=== PATIENT | female | born 1990 | race Caucasian/White ===

== ENCOUNTER 2017-09-18 06:54 | Inpatient (IN) | payer BC ==
[2017-09-18] MEDS ORDERED: Misoprostol 25 MCG (1/4 of 100 MCG) Tab ONE ×2 (07:27→19:43)
[2017-09-18] MEDS: Misoprostol 25 MCG (1/4 of 100 MCG) Tab VAG SCH ×3 (07:30→16:08)
[2017-09-18] MEDS ORDERED: Nalbuphine 20 MG/1 ML Amp IVPUSH PRN (07:33)
[2017-09-18] MEDS ORDERED: Sodium Chloride 0.9% 10 ML Syringe FLUSH PRN (07:33)
[2017-09-18] MEDS ORDERED: Ondansetron 4 MG/2 ML SDV IVPUSH PRN (07:33)
[2017-09-18] MEDS ORDERED: Acetaminophen 325 MG Tab PO PRN (07:33)
[2017-09-18] MEDS ORDERED: diphenhydrAMINE 50 MG/ML SDV IVPUSH PRN (07:44)
[2017-09-18] MEDS ORDERED: fentaNYL 100 MCG/2 ML SDV EPIDUR PRN (07:44)
[2017-09-18] MEDS ORDERED: ePHEDrine 50 MG/ML SDV IVPUSH PRN (07:44)
[2017-09-18] MEDS ORDERED: Bupivacaine/fentaNYL/NS 100 ML Bag EPIDUR SCH (07:45)
--- NOTE | 2017-09-18 07:49 | PCM.LDHP ---
L&D History of Present Illness - General Date of Service: 09/18/17 Admit Problem/Dx: Patient Status Order with Admit Dx/Problem 09/18/17 07:34 Patient Status [ADT] Routine Admission Diagnosis/Problem Admission Diagnosis/Problem Source of Information: Patient History Limitations: Reports: No Limitations - History of Present Illness Introduction:: 76-year-old 1 para 0000 BOWEN of 09/24/2017 at estimated gestational age of 39 weeks 1 day. Group B strep positive with history of penicillin allergy and will begin vancomycin. Lives an [place]. Has had transient hypertension during the . Plan induction of labor. Rubella nonreactive needs measles mumps rubella vaccine after delivery. Improves with: Reports: None Worsens with: Reports: None Associated Symptoms: Reports: N - Related Data Allergies/Adverse Reactions: Allergies Allergy/AdvReac Type Severity Reaction Status Date / Time Penicillins Allergy Anaphylactic Verified 04/03/14 14:54 CDT Shock Past Medical History : 1 Para: 0 (0000) Psychiatric History: Reports: Depression Endocrine/Metabolic History: Reports: Hypothyroidism (Taking levothyroxine 50 g daily), Other (See Below) (History of hypokalemia) H&P Review of Systems - Review of Systems: Review Of Systems: See Below General: Reports: No Symptoms HEENT: Reports: No Symptoms Pulmonary: Reports: No Symptoms Cardiovascular: Reports: No Symptoms Gastrointestinal: Reports: No Symptoms Genitourinary: Reports: No Symptoms Musculoskeletal: Reports: No Symptoms Skin: Reports: No Symptoms Psychiatric: Reports: No Symptoms Neurological: Reports: No Symptoms Hematologic/Lymphatic: Reports: No Symptoms Immunologic: Reports: No Symptoms L&D Exam - Exam Exam: See Below - OB Specific Fundal Height In cm: 39 Movement: Active Heart Tones: Present Heart Tones per Min: 145 Heart Rate (FHR) Variability: Moderate (6-25 bmp) Presentation: Vertex - Richter Score Richter Score Cervix Position: Posterior Richter Score Consistency: Soft Richter Score Effacement: 31-50% Richter Score Dilation: 1-2 cm Richter Score 's Station: -3 Richter Score Total: 4 - Exam General: Alert, Oriented HEENT: Conjunctiva Clear, Mucosa Moist & [place], PERRLA Neck: Supple, Trachea Midline Lungs: Clear to Auscultation, Normal Respiratory Effort Cardiovascular: Regular Rate, Regular Rhythm GI/Abdominal Exam: Normal Bowel Sounds, Soft, Non-Tender, No Organomegaly, No Distention, No Abnormal Bruit, No Mass, Pelvis Stable Genitourinary: Normal external exam, Normal bimanual exam, Normal speculum exam Extremities: Normal Inspection, Normal Range of Motion, Non-Tender, No Pedal Edema, Normal Capillary Refill Skin: Warm, Dry, Intact Neurological: Reflexes Equal Bilateral Psychiatric: Alert, Normal Affect, Normal Mood - Problem List (1) 39 weeks gestation of SNOMED Code(s): 21619245 ICD Code: Z3A.39 - 39 WEEKS GESTATION OF Status: Acute Current Visit: Yes (2) GBS (group B Streptococcus carrier), +RV culture, currently SNOMED Code(s): 2234465930647, 5014996132185 ICD Code: O99.820 - STREPTOCOCCUS B CARRIER STATE COMPLICATING Status: Acute Current Visit: Yes (3) Transient hypertension of SNOMED Code(s): 237230778 ICD Code: O13.9 - GESTATIONAL HTN W/O SIGNIFICANT PROTEINURIA, UNSP TRIMESTER Status: Acute Current Visit: Yes (4) Hypothyroid in , antepartum SNOMED Code(s): 177983227289 ICD Code: O99.280 - ENDO, NUTRITIONAL AND METAB DISEASES COMP PREG, UNSP TRI ; E03.9 - HYPOTHYROIDISM, UNSPECIFIED Status: Acute Current Visit: Yes Problem List Initiated/Reviewed/Updated: No Orders Last 24hrs: Active Orders 24 hr Category Date Time Status Patient Status [ADT] Routine ADT 09/18/17 07:34 Ordered Activity as Tolerated [RC] PFP Care 09/18/17 07:34 Ordered Communication Order [RC] ASDIRECTED Care 09/18/17 07:34 Ordered Heart Tones [RC] ASDIRECTED Care 09/18/17 07:35 Ordered Notify Provider [RC] PFP Care 09/18/17 07:34 Ordered Notify Provider [RC] PRN Care 09/18/17 07:34 Ordered Peripheral IV Care [RC] . DIRECTED Care 09/18/17 07:35 Ordered Vital Signs [RC] PER UNIT ROUTINE Care 09/18/17 07:34 Ordered Regular Diet [DIET] Diet 09/18/17 Breakfast Ordered CBC WITH AUTO DIFF [HEME] Stat Lab 09/18/17 07:33 Ordered TYPE AND SCREEN [BBK] Stat Lab 09/18/17 07:33 Ordered Acetaminophen [Tylenol] Med 09/18/17 07:33 Ordered 650 mg PO Q4H PRN Lactated Ringers [Ringers, Lactated] 1,000 ml Med 09/18/17 07:45 Ordered IV ASDIRECTED Misoprostol [Cytotec] Med 09/18/17 11:30 Ordered 25 mcg VAG Q4H Nalbuphine [Nubain] Med 09/18/17 07:33 Ordered 10 mg IVPUSH Q2H PRN Ondansetron [Zofran] Med 09/18/17 07:33 Ordered 4 mg IVPUSH Q4H PRN Oxytocin/Lactated Ringers [Pitocin in LR 10 Units/1,000 Med 09/18/17 19:30 Ordered ML] 10 unit in 1,000 ml IV TITRATE Sodium Chloride 0.9% [Saline Flush] Med 09/18/17 07:33 Ordered 10 ml FLUSH ASDIRECTED PRN Vancomycin [Vancocin] 1 gm Med 09/18/17 07:45 Ordered Sodium Chloride 0.9% [Normal Saline] 250 ml IV Q12H Electronic Heart Tones Ext w TOCO [WOMSER] Oth 09/18/17 07:34 Ordered Routine Electronic Heart Tones Internal [WOMSER] Per Unit Oth 09/18/17 07:34 Ordered Routine Peripheral IV Insertion Adult [OM.PC] Routine Oth 09/18/17 07:34 Ordered Resuscitation Status Routine Resus Stat 09/18/17 07:33 Ordered Assessment/Plan Comment:: Plan induction of labor and delivery
--- NOTE | 2017-09-18 19:55 | PCM.SN ---
- Free Text/Narrative Note: after slow progression and placement of the third Cytotec at approximately 1600 hrs., decision made to repeat cytotech at 2000 hrs. and again at 2400 hrs. and then began Pitocin induction at 0400 hrs. on 09/19/17. Cervix at 2000 hrs. still closed but 70% effaced cephalic presentation now at 0 station cervix still soft and posterior. Cytotec placed. Patient states contractions seem to be getting stronger. Category 1 heart rate.
[2017-09-18] MEDS: Lactated Ringers 1,000 ML IV SCH (20:15)
[2017-09-18] MEDS ORDERED: Terbutaline 1 MG/ML SDV SUBCUT ONE (22:32)
[2017-09-18] MEDS ORDERED: Terbutaline 1 MG/ML SDV ONE (22:33)
[2017-09-19] MEDS: Misoprostol 25 MCG (1/4 of 100 MCG) Tab VAG SCH ×2 (00:48)
[2017-09-19] MEDS: Lactated Ringers 1,000 ML IV SCH ×4 (01:24→16:24)
[2017-09-19] MEDS: Oxytocin/Lactated Ringers 10 UNIT/1,000 ML BAG IV SCH ×2 (01:24→14:27)
--- NOTE | 2017-09-19 09:54 | PCM.SN ---
- Free Text/Narrative Note: Amniotomy performed at approximately 9:50 AM cervix is 2 cm dilated 80% effaced soft posterior vertex 0 station clear fluid category 1 heart rate.
[2017-09-19] MEDS ORDERED: Misoprostol 200 MCG Tab ONE (12:00)
[2017-09-19] MEDS ORDERED: fentaNYL 100 MCG/2 ML SDV EPIDUR PRN (14:30)
[2017-09-19] MEDS ORDERED: diphenhydrAMINE 50 MG/ML SDV IVPUSH PRN (14:30)
[2017-09-19] MEDS ORDERED: ePHEDrine 50 MG/ML SDV IVPUSH PRN (14:30)
[2017-09-19] MEDS ORDERED: Bupivacaine/fentaNYL/NS 100 ML Bag EPIDUR SCH (14:30)
--- NOTE | 2017-09-19 15:03 | PCM.PREANE ---
Preanesthetic Assessment - Anesthesia/Transfusion/Family Hx Anesthesia History: Prior Anesthesia Without Reaction Family History of Anesthesia Reaction: No Transfusion History: No Prior Transfusion(s) - Review of Systems General: No Symptoms Pulmonary: No Symptoms Cardiovascular: No Symptoms Gastrointestinal: No Symptoms Neurological: Numbness (left hand) Other: Reports: Thyroid Problems - Physical Assessment Pulse: 83 O2 Sat by Pulse Oximetry: 97 Respiratory Rate: 16 Blood Pressure: 132/83 Temperature: 36.7 C Vital Signs: Last Vital Signs Temp 36.7 C 09/18/17 21:49 Pulse 65 09/18/17 07:34 Resp 16 09/18/17 07:34 BP 119/83 09/18/17 07:34 Pulse Ox Height: 1.7 m Weight: 85.275 kg ASA Class: 2 Mental Status: Alert & Oriented x3 Airway Class: Mallampati = 1 Dentition: Reports: Normal Dentition Thyro-Mental Finger Breadths: 3 Mouth Opening Finger Breadths: 3 ROM/Head Extension: Full Lungs: Clear to Auscultation, Normal Respiratory Effort Cardiovascular: Regular Rate, Regular Rhythm - Lab Values: Laboratory Last Values WBC 8.84 K/mm3 (3.98-10.04) 09/18/17 08:00 RBC 4.74 M/mm3 (3.98-5.22) 09/18/17 08:00 Hgb 12.9 gm/L (11.2-15.7) 09/18/17 08:00 Hct 39.4 % (34.1-44.9) 09/18/17 08:00 MCV 83.1 fl (79.4-94.8) 09/18/17 08:00 MCH 27.2 pg (25.6-32.2) 09/18/17 08:00 MCHC 32.7 g/dl (32.2-35.5) 09/18/17 08:00 RDW Std Deviation 41.8 fL (36.4-46.3) 09/18/17 08:00 Plt Count 171 K/mm3 (182-369) L 09/18/17 08:00 MPV 11.5 fl (9.4-12.3) 09/18/17 08:00 Neut % (Auto) 74.5 % (34.0-71.1) H 09/18/17 08:00 Lymph % (Auto) 14.8 % (19.3-51.7) L 09/18/17 08:00 [place] % (Auto) 8.8 % (4.7-12.5) 09/18/17 08:00 Eos % (Auto) 1.0 (0.7-5.8) 09/18/17 08:00 Baso % (Auto) 0.1 % (0.1-1.2) 09/18/17 08:00 Neut # (Auto) 6.58 K/mm3 (1.56-6.13) H 09/18/17 08:00 Lymph # (Auto) 1.31 K/mm3 (1.18-3.74) 09/18/17 08:00 [place] # (Auto) 0.78 K/mm3 (0.24-0.36) H 09/18/17 08:00 Eos # (Auto) 0.09 K/mm3 (0.04-0.36) 09/18/17 08:00 Baso # (Auto) 0.01 K/mm3 (0.01-0.08) 09/18/17 08:00 Blood Type A POSITIVE 09/18/17 08:00 Gel Antibody Screen Negative 09/18/17 08:00 - Allergies Allergies/Adverse Reactions: Allergies Allergy/AdvReac Type Severity Reaction Status Date / Time Penicillins Allergy Anaphylactic Verified 04/03/14 14:54 CDT Shock - Anesthesia Plan Pre-Op Medication Ordered: None - Acknowledgements Anesthesia Type Planned: Epidural Pt an Appropriate Candidate for the Planned Anesthesia: Yes Alternatives and Risks of Anesthesia Discussed w Pt/Guardian: Yes Pt/Guardian Understands and Agrees with Anesthesia Plan: Yes PreAnesthesia Questionnaire Cardiovascular History: Reports: Hypertension Respiratory History: Reports: Other (See Below) Other Respiratory History: Hx of plurisy Gastrointestinal History: Reports: GERD 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: Psychiatric History: Reports: Depression Endocrine/Metabolic History: Reports: Hypothyroidism (Taking levothyroxine 50 g daily), Other (See Below) (History of hypokalemia) - SUBSTANCE USE Smoking Status *Q: Never Smoker Tobacco Use Within Last Twelve Months: No Second Hand Smoke Exposure: No Recreational Drug Use History: No - HOME MEDS Home Medications: Home Meds Levothyroxine 75 mcg PO ACBREAKFAST 09/18/17 [History] Prenat Vit Comb.10/Iron/Fa/Dha [Vitafol-OB + DHA] 1 tab PO DAILY 09/18/17 [ History] Venlafaxine HCl [Venlafaxine ER] 37.5 mg PO DAILY 09/18/17 [History] - CURRENT (IN HOUSE) MEDS Current Meds: Current Medications Acetaminophen (Tylenol) 650 mg PO Q4H PRN PRN Reason: Pain (Mild 1-3) and fever Last Admin: 09/18/17 21:49 Dose: 650 mg Diphenhydramine HCl (Benadryl) 25 mg IVPUSH Q6H PRN PRN Reason: Itching Ephedrine Sulfate (Ephedrine Sulfate) 5 mg IVPUSH ASDIRECTED PRN PRN Reason: HYPOTENTSION Fentanyl (Sublimaze) 100 mcg EPIDUR Q3H PRN PRN Reason: PAIN Last Admin: 09/19/17 14:57 Dose: 100 mcg Fentanyl/Bupivacaine HCl (Fentanyl/Bupivacaine/Ns 2 Mcg-0.125% 100 Ml) 100 ml EPIDUR ASDIRECTED MEGAN Last Admin: 09/19/17 14:57 Dose: 100 ml Lactated Ringer's (Ringers, Lactated) 1,000 mls @ 100 mls/hr IV ASDIRECTED MEGAN Last Admin: 09/19/17 10:14 Dose: 100 mls/hr Oxytocin/Lactated Ringer's (Pitocin In Lr 10 Units/1,000 Ml) 10 unit in 1,000 mls @ 12 mls/hr IV TITRATE MEGAN; 2 MUNITS/MIN PRN Reason: Protocol Last Admin: 09/19/17 14:27 Dose: 18 munits/min, 108 mls/hr Oxytocin 20 unit/ Lactated (Ringer's) 1,002 mls @ 1,503 mls/hr IV TITRATE MEGAN; 500 MUNITS/MIN PRN Reason: Protocol Vancomycin HCl 1 gm/ Sodium (Chloride) 250 mls @ 250 mls/hr IV Q12H MEGAN Last Admin: 09/19/17 11:00 Dose: 250 mls/hr Nalbuphine HCl (Nubain) 10 mg IVPUSH Q2H PRN PRN Reason: Pain (moderate 4-6) Ondansetron HCl (Zofran) 4 mg IVPUSH Q4H PRN PRN Reason: Nausea/Vomiting Sodium Chloride (Saline Flush) 10 ml FLUSH ASDIRECTED PRN PRN Reason: Keep Vein Open Discontinued Medications Diphenhydramine HCl (Benadryl) 25 mg IVPUSH Q6H PRN PRN Reason: Itching Ephedrine Sulfate (Ephedrine Sulfate) 5 mg IVPUSH ASDIRECTED PRN PRN Reason: HYPOTENTSION Fentanyl (Sublimaze) 100 mcg EPIDUR Q3H PRN PRN Reason: PAIN Fentanyl/Bupivacaine HCl (Fentanyl/Bupivacaine/Ns 2 Mcg-0.125% 100 Ml) 100 ml EPIDUR ASDIRECTED MEGAN Vancomycin HCl 1 gm/ Sodium (Chloride) 250 mls @ 250 mls/hr IV Q12H [facility] Last Admin: 09/18/17 23:19 Dose: 250 mls/hr Misoprostol (Cytotec) Confirm Administered Dose 25 mcg .ROUTE .STK-MED ONE Stop: 09/18/17 07:28 Last Admin: 09/18/17 10:45 Dose: Not Given Misoprostol (Cytotec) 25 mcg VAG Q4H [facility] Stop: 09/18/17 15:31 Last Admin: 09/18/17 16:08 Dose: 25 mcg Misoprostol (Cytotec) Confirm Administered Dose 25 mcg .ROUTE .STK-MED ONE Stop: 09/18/17 19:44 Last Admin: 09/18/17 19:50 Dose: 25 mcg Misoprostol (Cytotec) 25 mcg VAG Q4H [facility] Stop: 09/19/17 00:01 Last Admin: 09/19/17 00:48 Dose: Not Given Terbutaline Sulfate (Brethine) 0.25 mg SUBCUT ONETIME ONE Stop: 09/18/17 22:33 Last Admin: 09/18/17 22:44 Dose: 0.25 mg Terbutaline Sulfate (Brethine) Confirm Administered Dose 1 mg .ROUTE .STK-MED ONE Stop: 09/18/17 22:34 Last Admin: 09/19/17 00:49 Dose: Not Given
[2017-09-19] MEDS ORDERED: Lidocaine 1% 50 ML MDV ONE ×2 (21:41→22:00)
[2017-09-19] MEDS ORDERED: Lidocaine 1% 50 ML MDV INJECT ONE (22:00)
[2017-09-19] MEDS ORDERED: Bupivacaine 0.25% 10 ML SDV ONE (22:22)
--- NOTE | 2017-09-19 22:29 | PCM.DEL ---
L & D Note - General Info Date of Service: 09/19/17 Mother's Due Date: 09/24/17 - Delivery Note Labor: Augmented by Oxytocin Cervical Ripening Method: Misoprostil (25 g 4) Delivery Outcome: Livebirth (Male liveborn at 2146 hrs. Thursday09/19/2017 RACHELL no nuchal cord weight 4093 g 9 pounds 0.4 ounces Apgars 9/9 Dr. King present at delivery) Infant Delivery Method: Spontaneous Vaginal Delivery-Single Delivery Mode: Vacuum Extraction (3 in the green less than 15 seconds each pull) Type of Forceps Used: Mighty vac Presentation: Left Occiput Anterior (RACHELL) Nuchal Cord: None Prep: Povidone-Iodine (Betadine Anesthesia Type: Local, Epidural Anesthetic: Lidocaine (Xylocaine) 1% Plain Local Anesthetic Volume: Other (20 mL) Amniotic Fluid Description: Clear Episiotomy Type: Midline Laceration: 4th Degree Suture type: Other (Monocryl 4) Suture size: 4-0 Placenta: Intact (Central cord insertion), Spontaneous (2153 hrs. examined and intact) Cord: 3 Vessels Estimated Blood Loss: 750 Resuscitation Needed: No [place]: Suctioned, Bulb Syringe, Stimulated, Warmed, [place] Used, Warmer Used Provider: Peng Guerrier Score 1 min: 9 (Dr King@delivery) Score 5 min: 9 - Patient Data Vitals - Most Recent: Last Vital Signs Temp 98.1 F 09/19/17 15:03 Pulse 83 09/19/17 15:03 Resp 16 09/19/17 15:03 BP 132/83 09/19/17 15:03 Pulse Ox 97 09/19/17 15:03 Weight - Most Recent: 188 lb I&O - Last 24 Hours: Intake & Output 09/19/17 09/19/17 09/19/17 06:59 14:59 22:59 Intake Total 2370 Balance 2370 Med Orders - Current: Current Medications Acetaminophen (Tylenol) 650 mg PO Q4H PRN PRN Reason: Pain (Mild 1-3) and fever Last Admin: 09/18/17 21:49 Dose: 650 mg Diphenhydramine HCl (Benadryl) 25 mg IVPUSH Q6H PRN PRN Reason: Itching Ephedrine Sulfate (Ephedrine Sulfate) 5 mg IVPUSH ASDIRECTED PRN PRN Reason: HYPOTENTSION Fentanyl (Sublimaze) 100 mcg EPIDUR Q3H PRN PRN Reason: PAIN Last Admin: 09/19/17 14:57 Dose: 100 mcg Fentanyl/Bupivacaine HCl (Fentanyl/Bupivacaine/Ns 2 Mcg-0.125% 100 Ml) 100 ml EPIDUR ASDIRECTED MEGAN Last Admin: 09/19/17 14:57 Dose: 100 ml Lactated Ringer's (Ringers, Lactated) 1,000 mls @ 100 mls/hr IV ASDIRECTED MEGAN Last Admin: 09/19/17 16:24 Dose: 100 mls/hr Oxytocin/Lactated Ringer's (Pitocin In Lr 10 Units/1,000 Ml) 10 unit in 1,000 mls @ 12 mls/hr IV TITRATE MEGAN; 2 MUNITS/MIN PRN Reason: Protocol Last Titration: 09/19/17 17:21 Dose: 19 munits/min, 114 mls/hr Oxytocin 20 unit/ Lactated (Ringer's) 1,002 mls @ 1,503 mls/hr IV TITRATE MEGAN; 500 MUNITS/MIN PRN Reason: Protocol Vancomycin HCl 1 gm/ Sodium (Chloride) 250 mls @ 250 mls/hr IV Q12H [facility] Last Admin: 09/19/17 11:00 Dose: 250 mls/hr Nalbuphine HCl (Nubain) 10 mg IVPUSH Q2H PRN PRN Reason: Pain (moderate 4-6) Ondansetron HCl (Zofran) 4 mg IVPUSH Q4H PRN PRN Reason: Nausea/Vomiting Sodium Chloride (Saline Flush) 10 ml FLUSH ASDIRECTED PRN PRN Reason: Keep Vein Open Discontinued Medications Diphenhydramine HCl (Benadryl) 25 mg IVPUSH Q6H PRN PRN Reason: Itching Ephedrine Sulfate (Ephedrine Sulfate) 5 mg IVPUSH ASDIRECTED PRN PRN Reason: HYPOTENTSION Fentanyl (Sublimaze) 100 mcg EPIDUR Q3H PRN PRN Reason: PAIN Fentanyl/Bupivacaine HCl (Fentanyl/Bupivacaine/Ns 2 Mcg-0.125% 100 Ml) 100 ml EPIDUR ASDIRECTED MEGAN Vancomycin HCl 1 gm/ Sodium (Chloride) 250 mls @ 250 mls/hr IV Q12H [facility] Last Admin: 09/18/17 23:19 Dose: 250 mls/hr Lidocaine HCl (Xylocaine 1%) Confirm Administered Dose 50 ml .ROUTE .STK-MED ONE Stop: 09/19/17 21:42 Lidocaine HCl (Xylocaine 1%) Confirm Administered Dose 50 ml .ROUTE .STK-MED ONE Stop: 09/19/17 22:01 Misoprostol (Cytotec) Confirm Administered Dose 25 mcg .ROUTE .STK-MED ONE Stop: 09/18/17 07:28 Last Admin: 09/18/17 10:45 Dose: Not Given Misoprostol (Cytotec) 25 mcg VAG Q4H [facility] Stop: 09/18/17 15:31 Last Admin: 09/18/17 16:08 Dose: 25 mcg Misoprostol (Cytotec) Confirm Administered Dose 25 mcg .ROUTE .STK-MED ONE Stop: 09/18/17 19:44 Last Admin: 09/18/17 19:50 Dose: 25 mcg Misoprostol (Cytotec) 25 mcg VAG Q4H [facility] Stop: 09/19/17 00:01 Last Admin: 09/19/17 00:48 Dose: Not Given Terbutaline Sulfate (Brethine) 0.25 mg SUBCUT ONETIME ONE Stop: 09/18/17 22:33 Last Admin: 09/18/17 22:44 Dose: 0.25 mg Terbutaline Sulfate (Brethine) Confirm Administered Dose 1 mg .ROUTE .STK-MED ONE Stop: 09/18/17 22:34 Last Admin: 09/19/17 00:49 Dose: Not Given - Problem List & Annotations (1) 39 weeks gestation of SNOMED Code(s): 27540899 Code(s): Z3A.39 - 39 WEEKS GESTATION OF Status: Acute Current Visit: Yes (2) GBS (group B Streptococcus carrier), +RV culture, currently SNOMED Code(s): 6724518170300, 9889060627108 Code(s): O99.820 - STREPTOCOCCUS B CARRIER STATE COMPLICATING Status: Acute Current Visit: Yes (3) Transient hypertension of SNOMED Code(s): 832577509 Code(s): O13.9 - GESTATIONAL HTN W/O SIGNIFICANT PROTEINURIA, UNSP TRIMESTER Status: Acute Current Visit: Yes (4) Hypothyroid in , antepartum SNOMED Code(s): 520549272360 Code(s): O99.280 - ENDO, NUTRITIONAL AND METAB DISEASES COMP PREG, UNSP TRI; E03.9 - HYPOTHYROIDISM, UNSPECIFIED Status: Acute Current Visit: Yes (5) Fourth degree laceration of perineum during delivery, SNOMED Code(s): 846353267 Code(s): O70.3 - FOURTH DEGREE PERINEAL LACERATION DURING DELIVERY Status: Acute Current Visit: Yes - Problem List Review Problem List Initiated/Reviewed/Updated: No - My Orders Last 24 Hours: My Active Orders 09/19/17 10:45 Vancomycin [Vancocin] 1 gm Sodium Chloride 0.9% [Normal Saline] 250 ml IV Q12H - Plan Plan:: Plan induction of labor and delivery
[2017-09-19] MEDS ORDERED: Misoprostol 200 MCG Tab PO PRN (22:42)
[2017-09-19] MEDS ORDERED: Acetaminophen 325 MG Tab PO PRN (22:42)
[2017-09-19] MEDS ORDERED: Witch Hazel Medicated Pads 100/Jar TOP PRN (22:42)
[2017-09-19] MEDS ORDERED: Lanolin 100% Cream 7 GM Tube TOP PRN (22:42)
--- NOTE | 2017-09-20 00:45 | PCM.SN ---
- Free Text/Narrative Note: Patient fainted and "bumpeb" head. Out for a few seconds awake and alert now. No complaints. Pupils equal and react to light. Patient stable, no heavy vaginal bleeding at present. Ordered RL 250 ml/hr x2. Given juice. No complaints. BP 119/72
[2017-09-20] MEDS: Benzocaine/Menthol 20%-0.5% Spray 56 GM Canister TOP PRN ×2 (00:46→22:42)
[2017-09-20] MEDS: Lactated Ringers 1,000 ML IV SCH (00:47)
[2017-09-20] MEDS: Ibuprofen 600 MG Tab PO PRN ×3 (00:48→17:58)
[2017-09-20] MEDS: Acetaminophen/oxyCODONE 325-5 MG Tab PO PRN ×3 (04:52→22:34)
[2017-09-20] MEDS: Levothyroxine 75 MCG Tab PO SCH (06:54)
[2017-09-20] MEDS: Venlafaxine 37.5 MG Cap.ER PO SCH ×2 (10:49→11:11)
[2017-09-20] MEDS: Prenatal Multivitamin with Calcium/Folic Acid/Iron Tab PO SCH (10:49)
[2017-09-20] MEDS: Docusate Sodium 100 MG Cap PO PRN ×2 (11:10→22:41)
--- NOTE | 2017-09-20 11:10 | PCM.SN ---
- Free Text/Narrative Note: day 1 Afebrile, no heavy vaginal bleeding, no leg cramping, uterus involuting normally. Completing EPDS has taken Effexor 37.5 mg daily in the past is breast- feeding patient will try to avoid taking medications unless depression should occur and she will call our office for instructions if she becomes depressed desire to hurt self or others any suicidal ideations or plans. Probably home tomorrow.
[2017-09-21] MEDS: Ibuprofen 600 MG Tab PO PRN ×2 (03:47→08:57)
[2017-09-21] MEDS: Acetaminophen/oxyCODONE 325-5 MG Tab PO PRN ×2 (05:00→11:02)
[2017-09-21] MEDS: Levothyroxine 75 MCG Tab PO SCH (06:40)
--- NOTE | 2017-09-21 08:01 | PCM.DCSUM1 ---
Discharge Summary - Hospital Course Free Text/Narrative:: [facility] LIVE L/D Delivery Note Patient Name: JEANNINE MALIN Date of : 88 Patient Status: Inpatient Attending Provider: Peng Guerrier Date: 09/19/17 22:24 Initialization Date: 09/19/17 22:24 L & D Note - General Info Date of Service: 09/19/17 Mother's Due Date: 09/24/17 - Delivery Note Labor: Augmented by Oxytocin Cervical Ripening Method: Misoprostil (25 g 4) Delivery Outcome: Livebirth (Male liveborn at 2146 hrs. Thursday09/19/2017 RACHELL no nuchal cord weight 4093 g 9 pounds 0.4 ounces Apgars 05/30 Dr. King present at delivery) Delivery Method: Spontaneous Vaginal Delivery-Single Delivery Mode: Vacuum Extraction (3 in the green less than 15 seconds each pull) Type of Forceps Used: Mighty vac Presentation: Left Occiput Anterior (RACHELL) Nuchal Cord: None Prep: Povidone-Iodine (Betadine Anesthesia Type: Local, Epidural Anesthetic: Lidocaine (Xylocaine) 1% Plain Local Anesthetic Volume: Other (20 mL) Amniotic Fluid Description: Clear Episiotomy Type: Midline Laceration: 4th Degree Suture type: Other (Monocryl 4) Suture size: 4-0 Placenta: Intact (Central cord insertion), Spontaneous (2153 hrs. examined and intact) Cord: 3 Vessels Estimated Blood Loss: 750 Resuscitation Needed: No : Suctioned, Bulb Syringe, Stimulated, Warmed, [place] Used, Warmer Used Provider: Peng Guerrier Score 1 min: 9 (Dr King@delivery) Score 5 min: 9 - Patient Data Vitals - Most Recent: Last Vital Signs Temp 98.1 F 09/19/17 15:03 Pulse 83 09/19/17 15:03 Resp 16 09/19/17 15:03 BP 132/83 09/19/17 15:03 Pulse Ox 97 09/19/17 15:03 Weight - Most Recent: 188 lb I&O - Last 24 Hours: Intake & Output 09/19/17 09/19/17 09/19/17 06:59 14:59 22:59 Intake Total 2370 Balance 2370 Med Orders - Current: Current Medications Acetaminophen (Tylenol) 650 mg PO Q4H PRN PRN Reason: Pain (Mild 1-3) and fever Last Admin: 09/18/17 21:49 Dose: 650 mg Diphenhydramine HCl (Benadryl) 25 mg IVPUSH Q6H PRN PRN Reason: Itching Ephedrine Sulfate (Ephedrine Sulfate) 5 mg IVPUSH ASDIRECTED PRN PRN Reason: HYPOTENTSION Fentanyl (Sublimaze) 100 mcg EPIDUR Q3H PRN PRN Reason: PAIN Last Admin: 09/19/17 14:57 Dose: 100 mcg Fentanyl/Bupivacaine HCl (Fentanyl/Bupivacaine/Ns 2 Mcg-0.125% 100 Ml) 100 ml EPIDUR ASDIRECTED MEGAN Last Admin: 09/19/17 14:57 Dose: 100 ml Lactated Ringer's (Ringers, Lactated) 1,000 mls @ 100 mls/hr IV ASDIRECTED MEGAN Last Admin: 09/19/17 16:24 Dose: 100 mls/hr Oxytocin/Lactated Ringer's (Pitocin In Lr 10 Units/1,000 Ml) 10 unit in 1,000 mls @ 12 mls/hr IV TITRATE MEGAN; 2 MUNITS/MIN PRN Reason: Protocol Last Titration: 09/19/17 17:21 Dose: 19 munits/min, 114 mls/hr Oxytocin 20 unit/ Lactated (Ringer's) 1,002 mls @ 1,503 mls/hr IV TITRATE MEGAN; 500 MUNITS/MIN PRN Reason: Protocol Vancomycin HCl 1 gm/ Sodium (Chloride) 250 mls @ 250 mls/hr IV Q12H MEGAN Last Admin: 09/19/17 11:00 Dose: 250 mls/hr Nalbuphine HCl (Nubain) 10 mg IVPUSH Q2H PRN PRN Reason: Pain (moderate 4-6) Ondansetron HCl (Zofran) 4 mg IVPUSH Q4H PRN PRN Reason: Nausea/Vomiting Sodium Chloride (Saline Flush) 10 ml FLUSH ASDIRECTED PRN PRN Reason: Keep Vein Open Discontinued Medications Diphenhydramine HCl (Benadryl) 25 mg IVPUSH Q6H PRN PRN Reason: Itching Ephedrine Sulfate (Ephedrine Sulfate) 5 mg IVPUSH ASDIRECTED PRN PRN Reason: HYPOTENTSION Fentanyl (Sublimaze) 100 mcg EPIDUR Q3H PRN PRN Reason: PAIN Fentanyl/Bupivacaine HCl (Fentanyl/Bupivacaine/Ns 2 Mcg-0.125% 100 Ml) 100 ml EPIDUR ASDIRECTED MEGAN Vancomycin HCl 1 gm/ Sodium (Chloride) 250 mls @ 250 mls/hr IV Q12H [facility] Last Admin: 09/18/17 23:19 Dose: 250 mls/hr Lidocaine HCl (Xylocaine 1%) Confirm Administered Dose 50 ml .ROUTE .STK-MED ONE Stop: 09/19/17 21:42 Lidocaine HCl (Xylocaine 1%) Confirm Administered Dose 50 ml .ROUTE .STK-MED ONE Stop: 09/19/17 22:01 Misoprostol (Cytotec) Confirm Administered Dose 25 mcg .ROUTE .STK-MED ONE Stop: 09/18/17 07:28 Last Admin: 09/18/17 10:45 Dose: Not Given Misoprostol (Cytotec) 25 mcg VAG Q4H [facility] Stop: 09/18/17 15:31 Last Admin: 09/18/17 16:08 Dose: 25 mcg Misoprostol (Cytotec) Confirm Administered Dose 25 mcg .ROUTE .STK-MED ONE Stop: 09/18/17 19:44 Last Admin: 09/18/17 19:50 Dose: 25 mcg Misoprostol (Cytotec) 25 mcg VAG Q4H [facility] Stop: 09/19/17 00:01 Last Admin: 09/19/17 00:48 Dose: Not Given Terbutaline Sulfate (Brethine) 0.25 mg SUBCUT ONETIME ONE Stop: 09/18/17 22:33 Last Admin: 09/18/17 22:44 Dose: 0.25 mg Terbutaline Sulfate (Brethine) Confirm Administered Dose 1 mg .ROUTE .STK-MED ONE Stop: 09/18/17 22:34 Last Admin: 09/19/17 00:49 Dose: Not Given - Problem List & Annotations (1) 39 weeks gestation of SNOMED Code(s): 09212701 Code(s): Z3A.39 - 39 WEEKS GESTATION OF Status: Acute Current Visit: Yes (2) GBS (group B Streptococcus carrier), +RV culture, currently SNOMED Code(s): 6814869613959, 6810531718513 Code(s): O99.820 - STREPTOCOCCUS B CARRIER STATE COMPLICATING Status: Acute Current Visit: Yes (3) Transient hypertension of SNOMED Code(s): 774042553 Code(s): O13.9 - GESTATIONAL HTN W/O SIGNIFICANT PROTEINURIA, UNSP TRIMESTER Status: Acute Current Visit: Yes (4) Hypothyroid in , antepartum SNOMED Code(s): 433385960976 Code(s): O99.280 - ENDO, NUTRITIONAL AND METAB DISEASES COMP PREG, UNSP TRI; E03.9 - HYPOTHYROIDISM, UNSPECIFIED Status: Acute Current Visit: Yes (5) Fourth degree laceration of perineum during delivery, SNOMED Code(s): 804089668 Code(s): O70.3 - FOURTH DEGREE PERINEAL LACERATION DURING DELIVERY Status: Acute Current Visit: Yes - Problem List Review Problem List Initiated/Reviewed/Updated: No - My Orders Last 24 Hours: My Active Orders 09/19/17 10:45 Vancomycin [Vancocin] 1 gm Sodium Chloride 0.9% [Normal Saline] 250 ml IV Q12H - Plan Plan:: Plan induction of labor and delivery HPI Initial Comments: [facility] LIVE L/D Delivery Note Patient Name: JEANNINE MALIN Date of : 88 Patient Status: Inpatient Attending Provider: Peng Guerrier Date: 09/19/17 22:24 Initialization Date: 09/19/17 22:24 L & D Note - General Info Date of Service: 09/19/17 Mother's Due Date: 09/24/17 - Delivery Note Labor: Augmented by Oxytocin Cervical Ripening Method: Misoprostil (25 g 4) Delivery Outcome: Livebirth (Male liveborn at 2146 hrs. Thursday09/19/2017 RACHELL no nuchal cord weight 4093 g 9 pounds 0.4 ounces Apgars 9/9 Dr. King present at delivery) Infant Delivery Method: Spontaneous Vaginal Delivery-Single Infant Delivery Mode: Vacuum Extraction (3 in the green less than 15 seconds each pull) Type of Forceps Used: Mighty vac Presentation: Left Occiput Anterior (RACHELL) Nuchal Cord: None Prep: Povidone-Iodine (Betadine Anesthesia Type: Local, Epidural Anesthetic: Lidocaine (Xylocaine) 1% Plain Local Anesthetic Volume: Other (20 mL) Amniotic Fluid Description: Clear Episiotomy Type: Midline Laceration: 4th Degree Suture type: Other (Monocryl 4) Suture size: 4-0 Placenta: Intact (Central cord insertion), Spontaneous (2153 hrs. examined and intact) Cord: 3 Vessels Estimated Blood Loss: 750 Resuscitation Needed: No : Suctioned, Bulb Syringe, Stimulated, Warmed, [place] Used, Warmer Used Provider: Peng Guerrier Score 1 min: 9 (Dr King@delivery) Score 5 min: 9 - Patient Data Vitals - Most Recent: Last Vital Signs Temp 98.1 F 09/19/17 15:03 Pulse 83 09/19/17 15:03 Resp 16 09/19/17 15:03 BP 132/83 09/19/17 15:03 Pulse Ox 97 09/19/17 15:03 Weight - Most Recent: 188 lb I&O - Last 24 Hours: Intake & Output 09/19/17 09/19/17 09/19/17 06:59 14:59 22:59 Intake Total 2370 Balance 2370 Med Orders - Current: Current Medications Acetaminophen (Tylenol) 650 mg PO Q4H PRN PRN Reason: Pain (Mild 1-3) and fever Last Admin: 09/18/17 21:49 Dose: 650 mg Diphenhydramine HCl (Benadryl) 25 mg IVPUSH Q6H PRN PRN Reason: Itching Ephedrine Sulfate (Ephedrine Sulfate) 5 mg IVPUSH ASDIRECTED PRN PRN Reason: HYPOTENTSION Fentanyl (Sublimaze) 100 mcg EPIDUR Q3H PRN PRN Reason: PAIN Last Admin: 09/19/17 14:57 Dose: 100 mcg Fentanyl/Bupivacaine HCl (Fentanyl/Bupivacaine/Ns 2 Mcg-0.125% 100 Ml) 100 ml EPIDUR ASDIRECTED MEGAN Last Admin: 09/19/17 14:57 Dose: 100 ml Lactated Ringer's (Ringers, Lactated) 1,000 mls @ 100 mls/hr IV ASDIRECTED MEGAN Last Admin: 09/19/17 16:24 Dose: 100 mls/hr Oxytocin/Lactated Ringer's (Pitocin In Lr 10 Units/1,000 Ml) 10 unit in 1,000 mls @ 12 mls/hr IV TITRATE MEGAN; 2 MUNITS/MIN PRN Reason: Protocol Last Titration: 09/19/17 17:21 Dose: 19 munits/min, 114 mls/hr Oxytocin 20 unit/ Lactated (Ringer's) 1,002 mls @ 1,503 mls/hr IV TITRATE MEGAN; 500 MUNITS/MIN PRN Reason: Protocol Vancomycin HCl 1 gm/ Sodium (Chloride) 250 mls @ 250 mls/hr IV Q12H [facility] Last Admin: 09/19/17 11:00 Dose: 250 mls/hr Nalbuphine HCl (Nubain) 10 mg IVPUSH Q2H PRN PRN Reason: Pain (moderate 4-6) Ondansetron HCl (Zofran) 4 mg IVPUSH Q4H PRN PRN Reason: Nausea/Vomiting Sodium Chloride (Saline Flush) 10 ml FLUSH ASDIRECTED PRN PRN Reason: Keep Vein Open Discontinued Medications Diphenhydramine HCl (Benadryl) 25 mg IVPUSH Q6H PRN PRN Reason: Itching Ephedrine Sulfate (Ephedrine Sulfate) 5 mg IVPUSH ASDIRECTED PRN PRN Reason: HYPOTENTSION Fentanyl (Sublimaze) 100 mcg EPIDUR Q3H PRN PRN Reason: PAIN Fentanyl/Bupivacaine HCl (Fentanyl/Bupivacaine/Ns 2 Mcg-0.125% 100 Ml) 100 ml EPIDUR ASDIRECTED MEGAN Vancomycin HCl 1 gm/ Sodium (Chloride) 250 mls @ 250 mls/hr IV Q12H [facility] Last Admin: 09/18/17 23:19 Dose: 250 mls/hr Lidocaine HCl (Xylocaine 1%) Confirm Administered Dose 50 ml .ROUTE .STK-MED ONE Stop: 09/19/17 21:42 Lidocaine HCl (Xylocaine 1%) Confirm Administered Dose 50 ml .ROUTE .STK-MED ONE Stop: 09/19/17 22:01 Misoprostol (Cytotec) Confirm Administered Dose 25 mcg .ROUTE .STK-MED ONE Stop: 09/18/17 07:28 Last Admin: 09/18/17 10:45 Dose: Not Given Misoprostol (Cytotec) 25 mcg VAG Q4H [facility] Stop: 09/18/17 15:31 Last Admin: 09/18/17 16:08 Dose: 25 mcg Misoprostol (Cytotec) Confirm Administered Dose 25 mcg .ROUTE .STK-MED ONE Stop: 09/18/17 19:44 Last Admin: 09/18/17 19:50 Dose: 25 mcg Misoprostol (Cytotec) 25 mcg VAG Q4H [facility] Stop: 09/19/17 00:01 Last Admin: 09/19/17 00:48 Dose: Not Given Terbutaline Sulfate (Brethine) 0.25 mg SUBCUT ONETIME ONE Stop: 09/18/17 22:33 Last Admin: 09/18/17 22:44 Dose: 0.25 mg Terbutaline Sulfate (Brethine) Confirm Administered Dose 1 mg .ROUTE .STK-MED ONE Stop: 09/18/17 22:34 Last Admin: 09/19/17 00:49 Dose: Not Given - Problem List & Annotations (1) 39 weeks gestation of SNOMED Code(s): 64403201 Code(s): Z3A.39 - 39 WEEKS GESTATION OF Status: Acute Current Visit: Yes (2) GBS (group B Streptococcus carrier), +RV culture, currently SNOMED Code(s): 2858359652537, 4212045659880 Code(s): O99.820 - STREPTOCOCCUS B CARRIER STATE COMPLICATING Status: Acute Current Visit: Yes (3) Transient hypertension of SNOMED Code(s): 216305157 Code(s): O13.9 - GESTATIONAL HTN W/O SIGNIFICANT PROTEINURIA, UNSP TRIMESTER Status: Acute Current Visit: Yes (4) Hypothyroid in , antepartum SNOMED Code(s): 254414477261 Code(s): O99.280 - ENDO, NUTRITIONAL AND METAB DISEASES COMP PREG, UNSP TRI; E03.9 - HYPOTHYROIDISM, UNSPECIFIED Status: Acute Current Visit: Yes (5) Fourth degree laceration of perineum during delivery, SNOMED Code(s): 077891391 Code(s): O70.3 - FOURTH DEGREE PERINEAL LACERATION DURING DELIVERY Status: Acute Current Visit: Yes - Problem List Review Problem List Initiated/Reviewed/Updated: No - My Orders Last 24 Hours: My Active Orders 09/19/17 10:45 Vancomycin [Vancocin] 1 gm Sodium Chloride 0.9% [Normal Saline] 250 ml IV Q12H - Plan Plan:: Plan induction of labor and delivery Brief History: [facility] LIVE . L/D Delivery Note. Patient Name: JEANNINE MALIN [facility] Record Number: [id number]. Date of : Patient Status: Inpatient. Attending Provider: Peng Guerrier Number: [id number]. Date: 09/19/17 22:24Initialization Date: 09/19/17 22:24. L & D Note. - General Info. Date of Service: 09/19/17. Mother's Due Date: 09/24/17. - Delivery Note. Labor: Augmented by Oxytocin. Cervical Ripening Method: Misoprostil (25 g 4). Delivery Outcome: Livebirth (Male liveborn at 2146 hrs. Thursday09/19/2017 RACHELL no nuchal cord weight 4093 g 9 pounds 0.4 ounces Apgars 9/9 Dr. King present at delivery). Delivery Method: Spontaneous Vaginal Delivery-Single. Infant Delivery Mode: Vacuum Extraction ( 3 in the green less than 15 seconds each pull). Type of Forceps Used: Mighty vac. Presentation: Left Occiput Anterior (RACHELL). Nuchal Cord: None. Prep : Povidone-Iodine (Betadine. Anesthesia Type: Local, Epidural. Anesthetic: Lidocaine (Xylocaine) 1% Plain. Local Anesthetic Volume: Other (20 mL). Amniotic Fluid Description: Clear. Episiotomy Type: Midline. Laceration: 4th Degree. Suture type: Other (Monocryl 4). Suture size: 4-0. Placenta: Intact (Central cord insertion), Spontaneous (2153 hrs. examined and intact). Cord: 3 Vessels. Estimated Blood Loss: 750. Resuscitation Needed: No. [place]: Suctioned, Bulb Syringe, Stimulated, Warmed, [place] Used, Warmer Used. Provider: Peng Guerrier. Score 1 min: 9 (Dr King@delivery ). Score 5 min: 9. - Patient Data. Vitals - Most Recent: Last Vital Signs. Temp 98.1 F 09/19/17 15:03. Pulse 83 09/19/17 15:03. Resp 16 15:03. BP 132/83 09/19/17 15:03. Pulse Ox 97 09/19/17 15:03. Weight - Most Recent: 188 lb. I&O - Last 24 Hours: Intake & Output. 09/19/17121711. 06:5914:[id number]:59. Intake [id number]. [id number]. Med Orders - Current : Current Medications. Acetaminophen (Tylenol) 650 mg PO Q4H PRN. PRN Reason : Pain (Mild 1-3) and fever. Last Admin: 09/18/17 21:49 Dose: 650 mg. Diphenhydramine HCl (Benadryl) 25 mg IVPUSH Q6H PRN. PRN Reason: Itching. Ephedrine Sulfate (Ephedrine Sulfate) 5 mg IVPUSH ASDIRECTED PRN. PRN Reason: HYPOTENTSION. Fentanyl (Sublimaze) 100 mcg EPIDUR Q3H PRN. PRN Reason: PAIN. Last Admin: 09/19/17 14:57 Dose: 100 mcg. Fentanyl/Bupivacaine HCl (Fentanyl /Bupivacaine/Ns 2 Mcg-0.125% 100 Ml) 100 ml EPIDUR ASDIRECTED MEGAN. Last Admin : 09/19/17 14:57 Dose: 100 ml. Lactated Ringer's (Ringers, Lactated) 1,000 mls @ 100 mls/hr IV ASDIRECTED MEGAN. Last Admin: 09/19/17 16:24 Dose: 100 mls/ hr. Oxytocin/Lactated Ringer's (Pitocin In Lr 10 Units/1,000 Ml) 10 unit in 1, 000 mls @ 12 mls/hr IV TITRATE MEGAN; 2 MUNITS/MIN. PRN Reason: Protocol. Last Titration: 09/19/17 17:21 Dose: 19 munits/min, 114 mls/hr. Oxytocin 20 unit/ Lactated (Ringer's) 1,002 mls @ 1,503 mls/hr IV TITRATE MEGNA; 500 MUNITS/MIN. PRN Reason: Protocol. Vancomycin HCl 1 gm/ Sodium (Chloride) 250 mls @ 250 mls /hr IV Q12H [facility]. Last Admin: 09/19/17 11:00 Dose: 250 mls/hr. Nalbuphine HCl (Nubain) 10 mg IVPUSH Q2H PRN. PRN Reason: Pain (moderate 4-6). Ondansetron HCl (Zofran) 4 mg IVPUSH Q4H PRN. PRN Reason: Nausea/Vomiting. Sodium Chloride (Saline Flush) 10 ml FLUSH ASDIRECTED PRN. PRN Reason: Keep Vein Open. Discontinued Medications. Diphenhydramine HCl (Benadryl) 25 mg IVPUSH Q6H PRN. PRN Reason: Itching. Ephedrine Sulfate (Ephedrine Sulfate) 5 mg IVPUSH ASDIRECTED PRN. PRN Reason: HYPOTENTSION. Fentanyl (Sublimaze) 100 mcg EPIDUR Q3H PRN. PRN Reason: PAIN. Fentanyl/Bupivacaine HCl (Fentanyl/ Bupivacaine/Ns 2 Mcg-0.125% 100 Ml) 100 ml EPIDUR ASDIRECTED MEGAN. Vancomycin HCl 1 gm/ Sodium (Chloride) 250 mls @ 250 mls/hr IV Q12H [facility]. Last Admin: 23:19 Dose: 250 mls/hr. Lidocaine HCl (Xylocaine 1%) Confirm Administered Dose 50 ml .ROUTE .STK-MED ONE. Stop: 09/19/17 21:42. Lidocaine HCl (Xylocaine 1%) Confirm Administered Dose 50 ml .ROUTE .STK-MED ONE. Stop: 09/19/17 22:01. Misoprostol (Cytotec) Confirm Administered Dose 25 mcg .ROUTE .STK-MED ONE. Stop: 09/18/17 07:28. Last Admin: 09/18/17 10:45 Dose: Not Given. Misoprostol (Cytotec) 25 mcg VAG Q4H [facility]. Stop: 09/18/17 15:31. Last Admin: 09/18/17 16:08 Dose: 25 mcg. Misoprostol (Cytotec) Confirm Administered Dose 25 mcg .ROUTE .STK-MED ONE. Stop: 09/18/17 19:44. Last Admin : 09/18/17 19:50 Dose: 25 mcg. Misoprostol (Cytotec) 25 mcg VAG Q4H [facility]. Stop: 09/19/17 00:01. Last Admin: 09/19/17 00:48 Dose: Not Given. Terbutaline Sulfate (Brethine) 0.25 mg SUBCUT ONETIME ONE. Stop: 09/18/17 22: 33. Last Admin: 09/18/17 22:44 Dose: 0.25 mg. Terbutaline Sulfate (Brethine) Confirm Administered Dose 1 mg .ROUTE .STK-MED ONE. Stop: 09/18/17 22:34. Last Admin: 09/19/17 00:49 Dose: Not Given. - Problem List & Annotations. (1 ) 39 weeks gestation of . SNOMED Code(s): 70463562. Code(s): Z3A.39 - 39 WEEKS GESTATION OF Status: Acute Current Visit: Yes. (2) GBS (group B Streptococcus carrier), +RV culture, currently . SNOMED Code(s): 1995393265278, 7207302770578. Code(s): O99.820 - STREPTOCOCCUS B CARRIER STATE COMPLICATING Status: Acute Current Visit: Yes. (3) Transient hypertension of . SNOMED Code(s): 233012822. Code(s): O13.9 - GESTATIONAL HTN W/O SIGNIFICANT PROTEINURIA, UNSP TRIMESTER Status: Acute Current Visit: Yes. (4) Hypothyroid in , antepartum. SNOMED Code(s): 393153191984. Code(s): O99.280 - ENDO, NUTRITIONAL AND METAB DISEASES COMP PREG, UNSP TRI; E03.9 - HYPOTHYROIDISM, UNSPECIFIED Status: Acute Current Visit: Yes. (5) Fourth degree laceration of perineum during delivery, . SNOMED Code(s): 460278657. Code(s): O70.3 - FOURTH DEGREE PERINEAL LACERATION DURING DELIVERY Status: Acute Current Visit: Yes. - Problem List Review. Problem List Initiated/Reviewed/Updated: No. - My Orders. Last 24 Hours: My Active Orders. 09/19/17 10:45. Vancomycin [ Vancocin] 1 gm Sodium Chloride 0.9% [Normal Saline] 250 ml IV Q12H. - Plan. Plan:: Plan induction of labor and delivery - Discharge Data Discharge Date: 09/21/17 Discharge Disposition: Home, Self-Care 01 Condition: Good - Discharge Diagnosis/Problem(s) (1) 39 weeks gestation of SNOMED Code(s): 38679928 ICD Code: Z3A.39 - 39 WEEKS GESTATION OF Status: Acute Current Visit: Yes (2) GBS (group B Streptococcus carrier), +RV culture, currently SNOMED Code(s): 9158798902967, 1342797472238 ICD Code: O99.820 - STREPTOCOCCUS B CARRIER STATE COMPLICATING Status: Acute Current Visit: Yes (3) Transient hypertension of SNOMED Code(s): 200172672 ICD Code: O13.9 - GESTATIONAL HTN W/O SIGNIFICANT PROTEINURIA, UNSP TRIMESTER Status: Acute Current Visit: Yes Qualifiers: Trimester: third trimester Qualified Code(s): O13.3 - Gestational [ -induced] hypertension without significant proteinuria, third trimester (4) Hypothyroid in , antepartum SNOMED Code(s): 772938650379 ICD Code: O99.280 - ENDO, NUTRITIONAL AND METAB DISEASES COMP PREG, UNSP TRI ; E03.9 - HYPOTHYROIDISM, UNSPECIFIED Status: Acute Current Visit: Yes (5) Fourth degree laceration of perineum during delivery, SNOMED Code(s): 918744063 ICD Code: O70.3 - FOURTH DEGREE PERINEAL LACERATION DURING DELIVERY Status : Acute Current Visit: Yes (6) Anemia, SNOMED Code(s): 393428668 ICD Code: O90.81 - ANEMIA OF THE PUERPERIUM Status: Acute Current Visit: Yes (7) hemorrhage, delivered, current hospitalization SNOMED Code(s): 37904116 ICD Code: O72.1 - OTHER IMMEDIATE HEMORRHAGE Status: Acute Current Visit: Yes - Patient Summary/Data Complications: None Consults: None Hospital Course: Uneventful - Patient Instructions Diet: Regular Diet as Tolerated Driving: Do Not Drive (48 hours R for 48 hours after last Percocet) Showering/Bathing: May Shower, No Tub Bathing/Swimming Notify Provider of: Fever, Increased Pain, Swelling and Redness, Drainage, Nausea and/or Vomiting - Discharge Plan Prescriptions/Med Rec: Acetaminophen/oxyCODONE [Percocet 325-5 MG] 1 tab PO Q6H PRN #10 tablet PRN Reason: Pain (Moderate 4-6) Iron,Carbonyl/Ascorbic Acid [Iron 100-Vitamin C Tablet] 1 each PO BID #60 tablet Home Medications: Home Meds Levothyroxine 75 mcg PO ACBREAKFAST 09/18/17 [History] Venlafaxine HCl [Venlafaxine ER] 37.5 mg PO DAILY 09/18/17 [History] Acetaminophen [Tylenol] 650 mg PO Q4H PRN tablet 09/21/17 [Rx] Acetaminophen/oxyCODONE [Percocet 325-5 MG] 1 tab PO Q6H PRN #10 tablet [Rx] Docusate Sodium [Colace] 100 mg PO BID PRN cap 09/21/17 [Rx] Ibuprofen [IJD: Ibuprofen] 600 mg PO Q4H PRN tablet 09/21/17 [Rx] Iron,Carbonyl/Ascorbic Acid [Iron 100-Vitamin C Tablet] 1 each PO BID #60 tablet 09/21/17 [Rx] Lanolin [Lansinoh HPA] 1 applic TOP ASDIRECTED PRN tube 09/21/17 [Rx] Vit with Ca/FA/Iron [ Plus Iron] 1 each PO DAILY tablet [Rx] Chad Vang [Tucks] 1 pad TOP ASDIRECTED PRN pad 09/21/17 [Rx] Referrals: Peng Guerrier MD [Physician] - (2 weeks) - Discharge Summary/Plan Comment DC Time >30 min.: No - Patient Data Vitals - Most Recent: Last Vital Signs Temp 98.2 F 09/20/17 20:00 Pulse 69 09/20/17 20:27 Resp 16 09/20/17 20:00 BP 114/56 L 09/20/17 20:27 Pulse Ox 98 09/20/17 20:27 Weight - Most Recent: 188 lb I&O - Last 24 hours: Intake & Output 09/20/17 09/21/17 09/21/17 22:59 06:59 14:59 Intake Total 120 Balance 120 Med Orders - Current: Current Medications Acetaminophen (Tylenol) 650 mg PO Q4H PRN PRN Reason: mild pain or fever Benzocaine/Menthol (Dermoplast Pain Relief [place]) 0 gm TOP ASDIRECTED PRN PRN Reason: Perineal Comfort Measure Last Admin: 09/20/17 22:42 Dose: 1 canister Docusate Sodium (Colace) 100 mg PO BID PRN PRN Reason: Constipation Last Admin: 09/20/17 22:41 Dose: 100 mg Emollient Ointment (Lansinoh Hpa) 0 gm TOP ASDIRECTED PRN PRN Reason: Sore Nipples Ibuprofen (Motrin) 600 mg PO Q4H PRN PRN Reason: Mild pain or fever Last Admin: 09/21/17 03:47 Dose: 600 mg Levothyroxine Sodium (Levothyroxine) 75 mcg PO ACBREAKFAST [facility] Last Admin: 09/21/17 06:40 Dose: 75 mcg Misoprostol (Cytotec) 400 mcg PO ONETIME PRN PRN Reason: excessive vaginal bleeding Last Admin: 09/19/17 22:00 Dose: 400 mcg Oxycodone/Acetaminophen (Percocet 325-5 Mg) 2 tab PO Q4H PRN PRN Reason: Pain (moderate 4-6) Last Admin: 09/21/17 05:00 Dose: 1 tab Prenat Multivit/Guy/Iron/Folic Ac ( Plus Iron) 1 each PO DAILY [facility] Last Admin: 09/20/17 10:49 Dose: 1 each Venlafaxine HCl (Effexor Xr) 37.5 mg PO DAILY [facility] Last Admin: 09/20/17 11:11 Dose: Not Given Chad Vang (Tucks) 1 pad TOP ASDIRECTED PRN PRN Reason: Hemorrhoid pain Last Admin: 09/20/17 00:47 Dose: 1 container Discontinued Medications Acetaminophen (Tylenol) 650 mg PO Q4H PRN PRN Reason: Pain (Mild 1-3) and fever Last Admin: 09/18/17 21:49 Dose: 650 mg Diphenhydramine HCl (Benadryl) 25 mg IVPUSH Q6H PRN PRN Reason: Itching Diphenhydramine HCl (Benadryl) 25 mg IVPUSH Q6H PRN PRN Reason: Itching Ephedrine Sulfate (Ephedrine Sulfate) 5 mg IVPUSH ASDIRECTED PRN PRN Reason: HYPOTENTSION Ephedrine Sulfate (Ephedrine Sulfate) 5 mg IVPUSH ASDIRECTED PRN PRN Reason: HYPOTENTSION Fentanyl (Sublimaze) 100 mcg EPIDUR Q3H PRN PRN Reason: PAIN Fentanyl (Sublimaze) 100 mcg EPIDUR Q3H PRN PRN Reason: PAIN Last Admin: 09/19/17 14:57 Dose: 100 mcg Fentanyl/Bupivacaine HCl (Fentanyl/Bupivacaine/Ns 2 Mcg-0.125% 100 Ml) 100 ml EPIDUR ASDIRECTED MEGAN Fentanyl/Bupivacaine HCl (Fentanyl/Bupivacaine/Ns 2 Mcg-0.125% 100 Ml) 100 ml EPIDUR ASDIRECTED MEGAN Last Admin: 09/19/17 14:57 Dose: 100 ml Lactated Ringer's (Ringers, Lactated) 1,000 mls @ 100 mls/hr IV ASDIRECTED MEGAN Last Admin: 09/20/17 00:47 Dose: 100 mls/hr Oxytocin/Lactated Ringer's (Pitocin In Lr 10 Units/1,000 Ml) 10 unit in 1,000 mls @ 12 mls/hr IV TITRATE MEGAN; 2 MUNITS/MIN PRN Reason: Protocol Last Titration: 09/19/17 17:21 Dose: 19 munits/min, 114 mls/hr Vancomycin HCl 1 gm/ Sodium (Chloride) 250 mls @ 250 mls/hr IV Q12H MEGAN Last Admin: 09/18/17 23:19 Dose: 250 mls/hr Oxytocin 20 unit/ Lactated (Ringer's) 1,002 mls @ 1,503 mls/hr IV TITRATE MEGAN; 500 MUNITS/MIN PRN Reason: Protocol Last Admin: 09/19/17 21:50 Dose: 500 munits/min, 1,503 mls/hr Vancomycin HCl 1 gm/ Sodium (Chloride) 250 mls @ 250 mls/hr IV Q12H [facility] Last Admin: 09/19/17 11:00 Dose: 250 mls/hr Lidocaine HCl (Xylocaine 1%) Confirm Administered Dose 50 ml .ROUTE .STK-MED ONE Stop: 09/19/17 21:42 Last Admin: 09/20/17 00:54 Dose: 50 ml Lidocaine HCl (Xylocaine 1%) Confirm Administered Dose 50 ml .ROUTE .STK-MED ONE Stop: 09/19/17 22:01 Last Admin: 09/20/17 00:56 Dose: Not Given Lidocaine HCl (Xylocaine 1%) 50 ml INJECT ONETIME ONE Stop: 09/19/17 22:01 Last Admin: 09/20/17 04:57 Dose: Not Given Misoprostol (Cytotec) Confirm Administered Dose 25 mcg .ROUTE .STK-MED ONE Stop: 09/18/17 07:28 Last Admin: 09/18/17 10:45 Dose: Not Given Misoprostol (Cytotec) 25 mcg VAG Q4H [facility] Stop: 09/18/17 15:31 Last Admin: 09/18/17 16:08 Dose: 25 mcg Misoprostol (Cytotec) Confirm Administered Dose 25 mcg .ROUTE .STK-MED ONE Stop: 09/18/17 19:44 Last Admin: 09/18/17 19:50 Dose: 25 mcg Misoprostol (Cytotec) 25 mcg VAG Q4H [facility] Stop: 09/19/17 00:01 Last Admin: 09/19/17 00:48 Dose: Not Given Nalbuphine HCl (Nubain) 10 mg IVPUSH Q2H PRN PRN Reason: Pain (moderate 4-6) Ondansetron HCl (Zofran) 4 mg IVPUSH Q4H PRN PRN Reason: Nausea/Vomiting Sodium Chloride (Saline Flush) 10 ml FLUSH ASDIRECTED PRN PRN Reason: Keep Vein Open Terbutaline Sulfate (Brethine) 0.25 mg SUBCUT ONETIME ONE Stop: 09/18/17 22:33 Last Admin: 09/18/17 22:44 Dose: 0.25 mg Terbutaline Sulfate (Brethine) Confirm Administered Dose 1 mg .ROUTE .STK-MED ONE Stop: 09/18/17 22:34 Last Admin: 09/19/17 00:49 Dose: Not Given *Q Meaningful Use (DIS) - VTE *Q VTE Criteria *Q: - Stroke *Q Stroke Criteria *Q: - AMI *Q AMI Criteria *Q:
[2017-09-21] MEDS: Prenatal Multivitamin with Calcium/Folic Acid/Iron Tab PO SCH (08:58)
[2017-09-21] MEDS: Docusate Sodium 100 MG Cap PO PRN (08:58)
[2017-09-21] MEDS ORDERED: Measles, Mumps & Rubella Vaccine 0.5 ML SDV SUBCUT ONE (10:33)
[2017-09-21] MEDS: Venlafaxine 37.5 MG Cap.ER PO SCH (11:01)
== END 2017-09-21 12:24 | disposition home or self-care (01) | DRG 560 ==
LOC: JD.OB 06:54 → OBSVTOIN 21:46 → INTOOBSV 21:46 → JD.OB 09-19 21:46 → OBSVTOIN 09-19 21:46 → JD.OB 09-19 21:46 → UNDODISIN 09-21 12:24
PROVIDERS: ADMIT Obstetrics & Gynecology; ATTEND Obstetrics & Gynecology
PROC: 3E0P7VZ Introduction of Hormone into Female Reproductive, Via Natural or Artificial Opening (ICD-10-PCS; 2017-09-18)
PROC: 3E033VJ Introduction of Other Hormone into Peripheral Vein, Percutaneous Approach (ICD-10-PCS; 2017-09-18)
PROC: 00HU33Z Insertion of Infusion Device into Spinal Canal, Percutaneous Approach (ICD-10-PCS; 2017-09-18)
PROC: 3E0R3BZ Introduction of Anesthetic Agent into Spinal Canal, Percutaneous Approach (ICD-10-PCS; 2017-09-18)
PROC: 10D07Z6 Extraction of Products of Conception, Vacuum, Via Natural or Artificial Opening (ICD-10-PCS; principal; 2017-09-19)
PROC: 10907ZC Drainage of Amniotic Fluid, Therapeutic from Products of Conception, Via Natural or Artificial Opening (ICD-10-PCS; 2017-09-19)
PROC: 0DQP0ZZ Repair Rectum, Open Approach (ICD-10-PCS; 2017-09-19)
PROC: 3E0234Z Introduction of Serum, Toxoid and Vaccine into Muscle, Percutaneous Approach (ICD-10-PCS; 2017-09-21)
DX: O13.4 Gestational [pregnancy-induced] hypertension without significant proteinuria, complicating childbirth (principal); O99.824 Streptococcus B carrier state complicating childbirth; O99.284 Endocrine, nutritional and metabolic diseases complicating childbirth; E03.9 Hypothyroidism, unspecified; Z3A.39 39 weeks gestation of pregnancy; Z37.0 Single live birth; O99.89 Other specified diseases and conditions complicating pregnancy, childbirth and the puerperium; R55 Syncope and collapse; O70.3 Fourth degree perineal laceration during delivery; Z23 Encounter for immunization; Z88.0 Allergy status to penicillin
CPT/HCPCS: 01967; 36415; 51702; 59300; 59409; 85025; 86850; 86900; 86901; 90471; 90707; A9270-GY; J2590; J3010; J3105; J3370; J7050; J7120

== ENCOUNTER 2019-07-22 07:19 | Observation (INO) | payer BC ==
[2019-07-22] MEDS ORDERED: Acetaminophen 325 MG Tab PO PRN (08:41)
[2019-07-22] MEDS ORDERED: Ondansetron 4 MG/2 ML SDV IVPUSH PRN (08:41)
[2019-07-22] MEDS ORDERED: Nalbuphine 10 MG/1 ML Vial IVPUSH PRN (08:41)
[2019-07-22] MEDS ORDERED: Calcium Carbonate 500 MG Tab.Chew PO PRN (08:41)
[2019-07-22] MEDS ORDERED: Sodium Chloride 0.9% 10 ML Syringe FLUSH PRN (08:41)
[2019-07-22] MEDS ORDERED: Oxytocin/Lactated Ringers 10 UNIT/1,000 ML BAG IV SCH (08:45)
[2019-07-22] MEDS ORDERED: Lactated Ringers 1,000 ML IV SCH (08:45)
[2019-07-22] MEDS ORDERED: Oxytocin/Lactated Ringers 20 UNIT/1,000 ML BAG IV SCH (08:45)
--- NOTE | 2019-07-22 13:25 | PCM.SN ---
- Free Text/Narrative Note: 28 y/o BOWEN 07/23/19 EGA 39w6d presented to L&D for possible induction but due to full L&D rooms (4 in labor) will be postponed to Thursday07/25/19 0700. NST reactive. Cervix at 0800 2cm, 50%, soft, posterior, vertex-1. Exam at 1315 cervix unchanges. No contractions. Patient lives in [place]. Induction postponed to Thursday07/25/2019. Z3A.39
== END 2019-07-22 13:30 | disposition home or self-care (01) ==
LOC: JD.OB 07:19
PROVIDERS: ADMIT Obstetrics & Gynecology; ATTEND Obstetrics & Gynecology
DX: Z34.83 Encounter for supervision of other normal pregnancy, third trimester (principal); Z3A.39 39 weeks gestation of pregnancy; Z88.0 Allergy status to penicillin; Z53.8 Procedure and treatment not carried out for other reasons
CPT/HCPCS: 36415; 59025; 85025; 86592; 86850; 86900; 86901; J3370; J7050; J7120; 96365; G0378

== ENCOUNTER 2019-07-25 07:01 | Inpatient (IN) | payer BC ==
[~2019-07-25 07:01] MED LIST: Bupivacaine 0.25% 10 ML SDV ONE
[2019-07-25] MEDS ORDERED: Ondansetron 4 MG/2 ML SDV IVPUSH PRN (07:09)
[2019-07-25] MEDS ORDERED: Nalbuphine 10 MG/1 ML Vial IVPUSH PRN (07:09)
[2019-07-25] MEDS ORDERED: Sodium Chloride 0.9% 10 ML Syringe FLUSH PRN (07:09)
[2019-07-25] MEDS ORDERED: Oxytocin/Lactated Ringers 20 UNIT/1,000 ML BAG IV SCH (07:15)
[2019-07-25] MEDS ORDERED: ePHEDrine 50 MG/ML SDV IVPUSH PRN (07:26)
[2019-07-25] MEDS ORDERED: diphenhydrAMINE 50 MG/ML SDV IVPUSH PRN (07:26)
[2019-07-25] MEDS ORDERED: fentaNYL/Bupivacaine/NS 2 MCG-0.125% 250 ML EPIDUR PRN (07:26)
[2019-07-25] MEDS ORDERED: fentaNYL 100 MCG/2 ML SDV EPIDUR PRN (07:26)
[2019-07-25] MEDS ORDERED: Misoprostol 25 MCG (1/4 of 100 MCG) Tab ONE (07:56)
--- NOTE | 2019-07-25 08:10 | PCM.LDHP ---
L&D History of Present Illness - General Date of Service: 07/25/19 Admit Problem/Dx: Patient Status Order with Admit Dx/Problem 07/25/19 07:09 Patient Status [ADT] Routine Admission Diagnosis/Problem Admission Diagnosis/Problem Source of Information: Patient History Limitations: Reports: No Limitations - History of Present Illness Introduction:: 28-year-old presented to labor and delivery on 07/25/19 estimated gestational age of 40 weeks and 2 days (BOWEN 07/23/19) for induction of labor. Patient lives an [place]. GBS positive. Penicillin allergy patient started on vancomycin. blood type A positive, antibody screen negative, hemoglobin/hematocrit 14.2/42.4 platelets 199,000 rubella immune, serology nonreactive, urine culture mixed anthony suggestive of contamination, hepatitis B surface antigen and HIV negative. GC and chlamydia probe were negative. 04/27/19 hemoglobin/hematocrit 12.8/37.8 platelets 183,000, 1 hour OB glucose screen 117. RPR nonreactive. 07/04/19 GBS positive. Plan induction of labor. Amniotomy performed at 0800 hrs. on Thursday07/25/19 scant fluid. No meconium staining. Improves with: Reports: None Worsens with: Reports: None Associated Symptoms: Reports: N - Related Data Allergies/Adverse Reactions: Allergies Allergy/AdvReac Type Severity Reaction Status Date / Time Penicillins Allergy Anaphylactic Verified 07/22/19 08:38 Shock Home Medications: Home Meds Levothyroxine 75 mcg PO ACBREAKFAST 09/18/17 [History] Venlafaxine HCl [Venlafaxine ER] 37.5 mg PO DAILY 09/18/17 [History] Vit with Ca/FA/Iron [ Plus Iron] 1 each PO DAILY tablet [Rx] Past Medical History Cardiovascular History: Reports: Hypertension Respiratory History: Reports: Other (See Below) Other Respiratory History: Hx of plurisy Gastrointestinal History: Reports: GERD 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: Psychiatric History: Reports: Depression Endocrine/Metabolic History: Reports: Hypothyroidism (Taking levothyroxine 50 g daily), Other (See Below) (History of hypokalemia) Social & Family History - Family History Family Medical History: Noncontributory - Caffeine Use Caffeine Use: Reports: None H&P Review of Systems - Review of Systems: Review Of Systems: See Below General: Reports: No Symptoms HEENT: Reports: No Symptoms Pulmonary: Reports: No Symptoms Cardiovascular: Reports: No Symptoms Gastrointestinal: Reports: No Symptoms Genitourinary: Reports: No Symptoms Musculoskeletal: Reports: No Symptoms Skin: Reports: No Symptoms Psychiatric: Reports: No Symptoms Neurological: Reports: No Symptoms Hematologic/Lymphatic: Reports: No Symptoms Immunologic: Reports: No Symptoms L&D Exam - Exam Exam: See Below - Vital Signs Weight: 192 lb 3.2 oz - OB Specific Fundal Height In cm: 40 Contraction Intensity: Mild Movement: Active Heart Tones: Present Heart Tones per Min: 140 Heart Rate (FHR) Variability: Moderate (6-25 bmp) Presentation: Vertex - Richter Score Richter Score Cervix Position: Posterior Richter Score Consistency: Soft Richter Score Effacement: 31-50% Richter Score Dilation: 3-4 cm Richter Score 's Station: -1 ,0 Richter Score Total: 7 - Exam General: Alert, Oriented HEENT: Conjunctiva Clear, Mucosa Moist & [place] Neck: Supple, Trachea Midline Lungs: Clear to Auscultation, Normal Respiratory Effort Cardiovascular: Regular Rate, Regular Rhythm GI/Abdominal Exam: Normal Bowel Sounds, Soft, Non-Tender Genitourinary: Normal external exam Extremities: Normal Inspection, Normal Range of Motion, Non-Tender, No Pedal Edema, Normal Capillary Refill Skin: Warm, Dry, Intact Neurological: Reflexes Equal Bilateral Psychiatric: Alert, Normal Affect, Normal Mood - Patient Data Lab Results Last 24 hrs: Laboratory Results - last 24 hr 07/25/19 Range/Units 07:28 WBC 9.18 (3.98-10.04) K/mm3 RBC 4.94 (3.98-5.22) M/mm3 Hgb 14.0 (11.2-15.7) gm/dl Hct 41.9 (34.1-44.9) % MCV 84.8 (79.4-94.8) fl MCH 28.3 (25.6-32.2) pg MCHC 33.4 (32.2-35.5) g/dl RDW Std Deviation 42.1 (36.4-46.3) fL Plt Count 158 L (182-369) K/mm3 MPV 11.7 (9.4-12.3) fl Neut % (Auto) 72.5 H (34.0-71.1) % Lymph % (Auto) 17.1 L (19.3-51.7) % [place] % (Auto) 8.6 (4.7-12.5) % Eos % (Auto) 0.9 (0.7-5.8) Baso % (Auto) 0.1 (0.1-1.2) % Neut # (Auto) 6.66 H (1.56-6.13) K/mm3 Lymph # (Auto) 1.57 (1.18-3.74) K/mm3 [place] # (Auto) 0.79 H (0.24-0.36) K/mm3 Eos # (Auto) 0.08 (0.04-0.36) K/mm3 Baso # (Auto) 0.01 (0.01-0.08) K/mm3 Result Diagrams: 07/25/19 07:28 - Problem List (1) 40 weeks gestation of SNOMED Code(s): 97328168 ICD Code: Z3A.40 - 40 WEEKS GESTATION OF Status: Acute Current Visit: Yes (2) GBS carrier SNOMED Code(s): 9230486366022 ICD Code: Z22.330 - CARRIER OF GROUP B STREPTOCOCCUS Status: Acute Current Visit: Yes Problem List Initiated/Reviewed/Updated: No Orders Last 24hrs: Active Orders 24 hr Category Date Time Status Patient Status [ADT] Routine ADT 07/25/19 07:09 Active Activity as Tolerated [RC] PFP Care 07/25/19 07:09 Active Communication Order [RC] ASDIRECTED Care 07/25/19 07:09 Active Communication Order [RC] ASDIRECTED Care 07/25/19 07:26 Active Cooling Warming Measures [RC] ASDIRECTED Care 07/25/19 07:26 Active Heart Tones [RC] ASDIRECTED Care 07/25/19 07:10 Active Non Stress Test [RC] PER UNIT ROUTINE Care 07/25/19 07:09 Active Notify Provider [RC] ASDIRECTED Care 07/25/19 07:26 Active Notify Provider [RC] PFP Care 07/25/19 07:09 Active Notify Provider [RC] PRN Care 07/25/19 07:09 Active Oxygen Therapy [RC] ASDIRECTED Care 07/25/19 07:26 Active Peripheral IV Care [RC] . DIRECTED Care 07/25/19 07:10 Active Pulse Oximetry [RC] ASDIRECTED Care 07/25/19 07:26 Active Vital Signs [RC] PER UNIT ROUTINE Care 07/25/19 07:09 Active Vital Signs [RC] Q1H Care 07/25/19 07:26 Active Regular Diet [DIET] Diet 07/25/19 Breakfast Active BLOOD BANK HOLD SPECIMEN [BBK] Stat Lab 07/25/19 07:09 Ordered RAPID PLASMA REAGIN,RPR [CHEM] Routine Lab 07/25/19 07:28 Received Bupivicaine/fentaNYL/NS [fentaNYL/Bupivacaine/NS 2 MCG- Med 07/25/19 07:26 Active 0.125% 250 ML] 250 ml EPIDUR CONTINUOUS PRN Lactated Ringers [Ringers, Lactated] 1,000 ml Med 07/25/19 07:15 Active IV ASDIRECTED Nalbuphine [Nubain] Med 07/25/19 07:09 Active 10 mg IVPUSH Q2H PRN Ondansetron [Zofran] Med 07/25/19 07:09 Active 4 mg IVPUSH Q4H PRN Oxytocin/Lactated Ringers [Pitocin in LR 10 Units/1,000 Med 07/25/19 08:15 Active ML] 10 unit in 1,000 ml IV TITRATE Oxytocin/Lactated Ringers [Pitocin in LR 20 Units/1,000 Med 07/25/19 07:15 Active ML] 20 unit in 1,000 ml IV .CONTINUOUS Sodium Chloride 0.9% [Saline Flush] Med 07/25/19 07:09 Active 10 ml FLUSH ASDIRECTED PRN Vancomycin [Vancocin] 1 gm Med 07/25/19 08:00 Active Sodium Chloride 0.9% [Normal Saline (AdvBag)] 250 ml IV Q12H diphenhydrAMINE [Benadryl] Med 07/25/19 07:26 Active 25 mg IVPUSH Q6H PRN ePHEDrine [ePHEDrine sulfate] Med 07/25/19 07:26 Active 5 mg IVPUSH ASDIRECTED PRN fentaNYL [Sublimaze] Med 07/25/19 07:26 Active 100 mcg EPIDUR Q3H PRN Electronic Heart Tones Ext w TOCO [WOMSER] Oth 07/25/19 07:09 Ordered Routine Electronic Heart Tones Internal [WOMSER] Per Unit Oth 07/25/19 07:09 Ordered Routine Peripheral IV Insertion Adult [OM.PC] Routine Oth 07/25/19 07:09 Ordered Resuscitation Status Routine Resus Stat 07/25/19 07:09 Ordered Medication Orders Diphenhydramine HCl (Benadryl) 25 mg IVPUSH Q6H PRN PRN Reason: Itching Ephedrine Sulfate (Ephedrine Sulfate) 5 mg IVPUSH ASDIRECTED PRN PRN Reason: HYPOTENTSION Fentanyl (Sublimaze) 100 mcg EPIDUR Q3H PRN PRN Reason: Pain Fentanyl/Bupivacaine HCl (Fentanyl/Bupivacaine/Ns 2 Mcg-0.125% 250 Ml) 250 ml EPIDUR CONTINUOUS PRN PRN Reason: Pain Lactated Ringer's (Ringers, Lactated) 1,000 mls @ 100 mls/hr IV ASDIRECTED MEGAN Oxytocin/Lactated Ringer's (Pitocin In Lr 20 Units/1,000 Ml) 20 unit in 1,000 mls @ 500 mls/hr IV .CONTINUOUS MEGAN Vancomycin HCl 1 gm/ Sodium (Chloride) 250 mls @ 167 mls/hr IV Q12H MEGAN Last Admin: 07/25/19 07:41 Dose: 167 mls/hr Oxytocin/Lactated Ringer's (Pitocin In Lr 10 Units/1,000 Ml) 10 unit in 1,000 mls @ 12 mls/hr IV TITRATE MEGAN; Protocol Nalbuphine HCl (Nubain) 10 mg IVPUSH Q2H PRN PRN Reason: Pain Ondansetron HCl (Zofran) 4 mg IVPUSH Q4H PRN PRN Reason: Nausea/Vomiting Sodium Chloride (Saline Flush) 10 ml FLUSH ASDIRECTED PRN PRN Reason: Keep Vein Open Assessment/Plan Comment:: Plan induction of labor and delivery.
[2019-07-25] MEDS ORDERED: Oxytocin/Lactated Ringers 10 UNIT/1,000 ML BAG IV SCH (08:15)
[2019-07-25] MEDS: Lactated Ringers 1,000 ML IV SCH ×3 (08:21→12:33)
--- NOTE | 2019-07-25 10:31 | PCM.SN ---
- Free Text/Narrative Note: Cervix 4 cm, 70% effaced, soft, mid-position, vertex 0 station. Cat I FHR.
--- NOTE | 2019-07-25 12:33 | PCM.PREANE ---
Preanesthetic Assessment - Procedure Proposed Procedure: epidural - Anesthesia/Transfusion/Family Hx Anesthesia History: Prior Anesthesia Without Reaction Family History of Anesthesia Reaction: No Transfusion History: No Prior Transfusion(s) - Review of Systems General: Malaise Pulmonary: No Symptoms Cardiovascular: No Symptoms Gastrointestinal: Abdominal Pain (labor) Neurological: No Symptoms Other: Reports: None - Physical Assessment Vital Signs: Last Vital Signs Temp 36.8 C 07/25/19 07:09 Pulse 82 07/25/19 07:09 Resp 14 07/25/19 07:09 BP 115/83 07/25/19 07:09 Pulse Ox 100 07/25/19 07:09 Height: 1.7 m Weight: 87.18 kg ASA Class: 2 Mental Status: Alert & Oriented x3 Airway Class: Mallampati = 1 Dentition: Reports: Normal Dentition Thyro-Mental Finger Breadths: 3 Mouth Opening Finger Breadths: 3 ROM/Head Extension: Full Lungs: Clear to Auscultation, Normal Respiratory Effort Cardiovascular: Regular Rate, Regular Rhythm - Lab Values: Laboratory Last Values WBC 9.18 K/mm3 (3.98-10.04) 07/25/19 07:28 RBC 4.94 M/mm3 (3.98-5.22) 07/25/19 07:28 Hgb 14.0 gm/dl (11.2-15.7) 07/25/19 07:28 Hct 41.9 % (34.1-44.9) 07/25/19 07:28 MCV 84.8 fl (79.4-94.8) 07/25/19 07:28 MCH 28.3 pg (25.6-32.2) 07/25/19 07:28 MCHC 33.4 g/dl (32.2-35.5) 07/25/19 07:28 RDW Std Deviation 42.1 fL (36.4-46.3) 07/25/19 07:28 Plt Count 158 K/mm3 (182-369) L 07/25/19 07:28 MPV 11.7 fl (9.4-12.3) 07/25/19 07:28 Neut % (Auto) 72.5 % (34.0-71.1) H 07/25/19 07:28 Lymph % (Auto) 17.1 % (19.3-51.7) L 07/25/19 07:28 [place] % (Auto) 8.6 % (4.7-12.5) 07/25/19 07:28 Eos % (Auto) 0.9 (0.7-5.8) 07/25/19 07:28 Baso % (Auto) 0.1 % (0.1-1.2) 07/25/19 07:28 Neut # (Auto) 6.66 K/mm3 (1.56-6.13) H 07/25/19 07:28 Lymph # (Auto) 1.57 K/mm3 (1.18-3.74) 07/25/19 07:28 [place] # (Auto) 0.79 K/mm3 (0.24-0.36) H 07/25/19 07:28 Eos # (Auto) 0.08 K/mm3 (0.04-0.36) 07/25/19 07:28 Baso # (Auto) 0.01 K/mm3 (0.01-0.08) 07/25/19 07:28 - Allergies Allergies/Adverse Reactions: Allergies Allergy/AdvReac Type Severity Reaction Status Date / Time Penicillins Allergy Anaphylactic Verified 07/25/19 08:58 Shock - Anesthesia Plan Pre-Op Medication Ordered: None - Acknowledgements Anesthesia Type Planned: Epidural Pt an Appropriate Candidate for the Planned Anesthesia: Yes Alternatives and Risks of Anesthesia Discussed w Pt/Guardian: Yes Pt/Guardian Understands and Agrees with Anesthesia Plan: Yes PreAnesthesia Questionnaire Cardiovascular History: Reports: Hypertension Respiratory History: Reports: Other (See Below) Other Respiratory History: Hx of plurisy Gastrointestinal History: Reports: GERD 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: Psychiatric History: Reports: Depression Endocrine/Metabolic History: Reports: Hypothyroidism (Taking levothyroxine 50 g daily), Other (See Below) (History of hypokalemia) - Infectious Disease History Infectious Disease History: Reports: C-Difficile - SUBSTANCE USE Smoking Status *Q: Never Smoker Second Hand Smoke Exposure: No Recreational Drug Use History: No - HOME MEDS Home Medications: Home Meds Venlafaxine HCl [Venlafaxine ER] 37.5 mg PO DAILY 09/18/17 [History] Vit with Ca/FA/Iron [ Plus Iron] 1 each PO DAILY tablet [Rx] - CURRENT (IN HOUSE) MEDS Current Meds: Current Medications Diphenhydramine HCl (Benadryl) 25 mg IVPUSH Q6H PRN PRN Reason: Itching Ephedrine Sulfate (Ephedrine Sulfate) 5 mg IVPUSH ASDIRECTED PRN PRN Reason: HYPOTENTSION Fentanyl (Sublimaze) 100 mcg EPIDUR Q3H PRN PRN Reason: Pain Last Admin: 07/25/19 12:07 Dose: 100 mcg Fentanyl/Bupivacaine HCl (Fentanyl/Bupivacaine/Ns 2 Mcg-0.125% 250 Ml) 250 ml EPIDUR CONTINUOUS PRN PRN Reason: Pain Last Admin: 07/25/19 12:07 Dose: 250 ml Lactated Ringer's (Ringers, Lactated) 1,000 mls @ 100 mls/hr IV ASDIRECTED MEGAN Last Admin: 07/25/19 11:30 Dose: 100 mls/hr Oxytocin/Lactated Ringer's (Pitocin In Lr 20 Units/1,000 Ml) 20 unit in 1,000 mls @ 500 mls/hr IV .CONTINUOUS MEGAN Vancomycin HCl 1 gm/ Sodium (Chloride) 250 mls @ 167 mls/hr IV Q12H MEGAN Last Admin: 07/25/19 07:41 Dose: 167 mls/hr Oxytocin/Lactated Ringer's (Pitocin In Lr 10 Units/1,000 Ml) 10 unit in 1,000 mls @ 12 mls/hr IV TITRATE MEGAN; Protocol Last Titration: 07/25/19 10:26 Dose: 8 munits/min, 48 mls/hr Nalbuphine HCl (Nubain) 10 mg IVPUSH Q2H PRN PRN Reason: Pain Ondansetron HCl (Zofran) 4 mg IVPUSH Q4H PRN PRN Reason: Nausea/Vomiting Sodium Chloride (Saline Flush) 10 ml FLUSH ASDIRECTED PRN PRN Reason: Keep Vein Open Discontinued Medications Misoprostol (Cytotec) Confirm Administered Dose 25 mcg .ROUTE .STK-MED ONE Stop: 07/25/19 07:57 Last Admin: 07/25/19 08:03 Dose: Not Given
--- NOTE | 2019-07-25 15:00 | PCM.DEL ---
L & D Note - General Info Date of Service: 07/25/19 Mother's Due Date: 07/23/19 - Delivery Note Labor: Augmented by ARM, Augmented by Oxytocin Delivery Outcome: Livebirth (Delivery at 1332 on Thursday07/25/19 3870 grams 8 lbs. 9 oz. Apgars 9/9 at one and 5 minutes respectively. AIXA) Presentation: Right Occiput Anterior (AIXA) Nuchal Cord: None Prep: Povidone-Iodine (Betadine Anesthesia Type: Epidural Amniotic Fluid Description: Clear Episiotomy Type: None Laceration: 2nd Degree (Sutured with 3-0 Monocryl times one) Suture type: Other Suture size: 3-0 (Vicryl) Placenta: Intact, Spontaneous (1341 intact accessory lobe entire placenta intact Thursday07/25/19) Cord: 3 Vessels Estimated Blood Loss: 250 Resuscitation Needed: No [place]: Suctioned, Bulb Syringe, Stimulated, Warmed, [place] Used, Warmer Used Provider: Peng Guerrier Score 1 min: 9 Score 5 min: 9 - General Info Date of Service: 07/25/19 Functional Status: Reports: Pain Controlled - Review of Systems General: Reports: No Symptoms HEENT: Reports: No Symptoms Pulmonary: Reports: No Symptoms Cardiovascular: Reports: No Symptoms Gastrointestinal: Reports: No Symptoms Genitourinary: Reports: No Symptoms Musculoskeletal: Reports: No Symptoms Skin: Reports: No Symptoms Neurological: Reports: No Symptoms Psychiatric: Reports: No Symptoms - Patient Data Vitals - Most Recent: Last Vital Signs Temp 98.2 F 07/25/19 07:09 Pulse 82 07/25/19 07:09 Resp 14 07/25/19 07:09 BP 115/83 07/25/19 07:09 Pulse Ox 100 07/25/19 07:09 Weight - Most Recent: 192 lb 3.2 oz Lab Results Last 24 Hours: Laboratory Results - last 24 hr 07/25/19 Range/Units 07:28 WBC 9.18 (3.98-10.04) K/mm3 RBC 4.94 (3.98-5.22) M/mm3 Hgb 14.0 (11.2-15.7) gm/dl Hct 41.9 (34.1-44.9) % MCV 84.8 (79.4-94.8) fl MCH 28.3 (25.6-32.2) pg MCHC 33.4 (32.2-35.5) g/dl RDW Std Deviation 42.1 (36.4-46.3) fL Plt Count 158 L (182-369) K/mm3 MPV 11.7 (9.4-12.3) fl Neut % (Auto) 72.5 H (34.0-71.1) % Lymph % (Auto) 17.1 L (19.3-51.7) % [place] % (Auto) 8.6 (4.7-12.5) % Eos % (Auto) 0.9 (0.7-5.8) Baso % (Auto) 0.1 (0.1-1.2) % Neut # (Auto) 6.66 H (1.56-6.13) K/mm3 Lymph # (Auto) 1.57 (1.18-3.74) K/mm3 [place] # (Auto) 0.79 H (0.24-0.36) K/mm3 Eos # (Auto) 0.08 (0.04-0.36) K/mm3 Baso # (Auto) 0.01 (0.01-0.08) K/mm3 Med Orders - Current: Current Medications Diphenhydramine HCl (Benadryl) 25 mg IVPUSH Q6H PRN PRN Reason: Itching Ephedrine Sulfate (Ephedrine Sulfate) 5 mg IVPUSH ASDIRECTED PRN PRN Reason: HYPOTENTSION Fentanyl (Sublimaze) 100 mcg EPIDUR Q3H PRN PRN Reason: Pain Last Admin: 07/25/19 12:07 Dose: 100 mcg Fentanyl/Bupivacaine HCl (Fentanyl/Bupivacaine/Ns 2 Mcg-0.125% 250 Ml) 250 ml EPIDUR CONTINUOUS PRN PRN Reason: Pain Last Admin: 07/25/19 12:07 Dose: 250 ml Lactated Ringer's (Ringers, Lactated) 1,000 mls @ 100 mls/hr IV ASDIRECTED MEGAN Last Admin: 07/25/19 12:33 Dose: 100 mls/hr Oxytocin/Lactated Ringer's (Pitocin In Lr 20 Units/1,000 Ml) 20 unit in 1,000 mls @ 500 mls/hr IV .CONTINUOUS MEGAN Vancomycin HCl 1 gm/ Sodium (Chloride) 250 mls @ 167 mls/hr IV Q12H MEGAN Last Admin: 07/25/19 07:41 Dose: 167 mls/hr Oxytocin/Lactated Ringer's (Pitocin In Lr 10 Units/1,000 Ml) 10 unit in 1,000 mls @ 12 mls/hr IV TITRATE MEGAN; Protocol Last Titration: 07/25/19 10:26 Dose: 8 munits/min, 48 mls/hr Nalbuphine HCl (Nubain) 10 mg IVPUSH Q2H PRN PRN Reason: Pain Ondansetron HCl (Zofran) 4 mg IVPUSH Q4H PRN PRN Reason: Nausea/Vomiting Sodium Chloride (Saline Flush) 10 ml FLUSH ASDIRECTED PRN PRN Reason: Keep Vein Open Discontinued Medications Misoprostol (Cytotec) Confirm Administered Dose 25 mcg .ROUTE .STK-MED ONE Stop: 07/25/19 07:57 Last Admin: 07/25/19 08:03 Dose: Not Given - Exam General: Alert, Oriented HEENT: Pupils Equal, Mucous Membr. Moist/[place] Neck: Supple Lungs: Clear to Auscultation, Normal Respiratory Effort Cardiovascular: Regular Rate, Regular Rhythm GI/Abdominal Exam: Normal Bowel Sounds, Soft, Non-Tender Skin: Warm, Dry, Intact Neurological: No New Focal Deficit Psy/Mental Status: Alert, Normal Affect, Normal Mood - Problem List & Annotations (1) 40 weeks gestation of SNOMED Code(s): 12104358 Code(s): Z3A.40 - 40 WEEKS GESTATION OF Status: Acute Current Visit: Yes (2) GBS carrier SNOMED Code(s): 0899987710414 Code(s): Z22.330 - CARRIER OF GROUP B STREPTOCOCCUS Status: Acute Current Visit: Yes (3) Second degree laceration of perineum, delivered, current hospitalization SNOMED Code(s): 572918732, 378641937 Code(s): O70.1 - SECOND DEGREE PERINEAL LACERATION DURING DELIVERY Status: Acute Current Visit: Yes (4) Normal delivery at term SNOMED Code(s): 09734433 Code(s): O80 - ENCOUNTER FOR FULL-TERM UNCOMPLICATED DELIVERY Status: Acute Current Visit: Yes - Problem List Review Problem List Initiated/Reviewed/Updated: No - My Orders Last 24 Hours: My Active Orders 11/04/19 07:09 Patient Status [ADT] Routine Activity as Tolerated [RC] PFP Communication Order [RC] ASDIRECTED Non Stress Test [RC] PER UNIT ROUTINE Notify Provider [RC] PFP Notify Provider [RC] PRN Vital Signs [RC] PER UNIT ROUTINE BLOOD BANK HOLD SPECIMEN [BBK] Stat Nalbuphine [Nubain] 10 mg IVPUSH Q2H PRN Ondansetron [Zofran] 4 mg IVPUSH Q4H PRN Sodium Chloride 0.9% [Saline Flush] 10 ml FLUSH ASDIRECTED PRN Electronic Heart Tones Ext w TOCO [WOMSER] Routine Electronic Heart Tones Internal [WOMSER] Per Unit Routine Peripheral IV Insertion Adult [OM.PC] Routine Resuscitation Status Routine 07/25/19 07:10 Heart Tones [RC] ASDIRECTED Peripheral IV Care [RC] . DIRECTED 07/25/19 07:15 Lactated Ringers [Ringers, Lactated] 1,000 ml IV ASDIRECTED Oxytocin/Lactated Ringers [Pitocin in LR 20 Units/1,000 ML] 20 unit in 1,000 ml IV .CONTINUOUS 07/25/19 07:28 RAPID PLASMA REAGIN,RPR [CHEM] Routine 07/25/19 08:00 Vancomycin [Vancocin] 1 gm Sodium Chloride 0.9% [Normal Saline (AdvBag)] 250 ml IV Q12H 07/25/19 08:15 Oxytocin/Lactated Ringers [Pitocin in LR 10 Units/1,000 ML] 10 unit in 1,000 ml IV TITRATE 07/25/19 Breakfast Regular Diet [DIET] - Plan Plan:: Plan induction of labor and delivery.
[2019-07-25] MEDS ORDERED: Docusate Sodium 100 MG Cap PO PRN (15:56)
[2019-07-25] MEDS ORDERED: Acetaminophen 325 MG Tab PO PRN (15:56)
[2019-07-25] MEDS ORDERED: Benzocaine/Menthol 20%-0.5% Spray 56 GM Canister TOP PRN (15:56)
[2019-07-25] MEDS ORDERED: Simethicone 80 MG Tab.Chew PO PRN (15:56)
[2019-07-25] MEDS ORDERED: Witch Hazel Medicated Pads 40/Jar TOP PRN (15:56)
[2019-07-25] MEDS: Ibuprofen 600 MG Tab PO PRN (20:51)
[2019-07-26] MEDS: Ibuprofen 600 MG Tab PO PRN ×4 (05:39→19:45)
--- NOTE | 2019-07-26 09:53 | PCM.DCSUM1 ---
Discharge Summary - Hospital Course Free Text/Narrative:: [facility] LIVE L/D Delivery Note Patient Name: JEANNINE MALIN Date of : 88 Patient Status: Inpatient Attending Provider: Peng Guerrier Date: 07/25/19 14:55 Initialization Date: 07/25/19 14:55 L & D Note - General Info Date of Service: 07/25/19 Mother's Due Date: 07/23/19 - Delivery Note Labor: Augmented by ARM, Augmented by Oxytocin Delivery Outcome: Livebirth (Delivery at 1332 on Thursday07/25/19 3870 grams 8 lbs. 9 oz. Apgars 9/9 at one and 5 minutes respectively. AIXA) Presentation: Right Occiput Anterior (AIXA) Nuchal Cord: None Prep: Povidone-Iodine (Betadine Anesthesia Type: Epidural Amniotic Fluid Description: Clear Episiotomy Type: None Laceration: 2nd Degree (Sutured with 3-0 Monocryl times one) Suture type: Other Suture size: 3-0 (Vicryl) Placenta: Intact, Spontaneous (1341 intact accessory lobe entire placenta intact Thursday07/25/19) Cord: 3 Vessels Estimated Blood Loss: 250 Resuscitation Needed: No Marshall: Suctioned, Bulb Syringe, Stimulated, Warmed, Dane Used, Warmer Used Provider: Peng Guerrier Score 1 min: 9 Score 5 min: 9 - General Info Date of Service: 07/25/19 Functional Status: Reports: Pain Controlled - Review of Systems General: Reports: No Symptoms HEENT: Reports: No Symptoms Pulmonary: Reports: No Symptoms Cardiovascular: Reports: No Symptoms Gastrointestinal: Reports: No Symptoms Genitourinary: Reports: No Symptoms Musculoskeletal: Reports: No Symptoms Skin: Reports: No Symptoms Neurological: Reports: No Symptoms Psychiatric: Reports: No Symptoms - Patient Data Vitals - Most Recent: Last Vital Signs Temp 98.2 F 07/25/19 07:09 Pulse 82 07/25/19 07:09 Resp 14 07/25/19 07:09 BP 115/83 07/25/19 07:09 Pulse Ox 100 07/25/19 07:09 Weight - Most Recent: 192 lb 3.2 oz Lab Results Last 24 Hours: Laboratory Results - last 24 hr 07/25/19 Range/Units 07:28 WBC 9.18 (3.98-10.04) K/mm3 RBC 4.94 (3.98-5.22) M/mm3 Hgb 14.0 (11.2-15.7) gm/dl Hct 41.9 (34.1-44.9) % MCV 84.8 (79.4-94.8) fl MCH 28.3 (25.6-32.2) pg MCHC 33.4 (32.2-35.5) g/dl RDW Std Deviation 42.1 (36.4-46.3) fL Plt Count 158 L (182-369) K/mm3 MPV 11.7 (9.4-12.3) fl Neut % (Auto) 72.5 H (34.0-71.1) % Lymph % (Auto) 17.1 L (19.3-51.7) % [place] % (Auto) 8.6 (4.7-12.5) % Eos % (Auto) 0.9 (0.7-5.8) Baso % (Auto) 0.1 (0.1-1.2) % Neut # (Auto) 6.66 H (1.56-6.13) K/mm3 Lymph # (Auto) 1.57 (1.18-3.74) K/mm3 [place] # (Auto) 0.79 H (0.24-0.36) K/mm3 Eos # (Auto) 0.08 (0.04-0.36) K/mm3 Baso # (Auto) 0.01 (0.01-0.08) K/mm3 Med Orders - Current: Current Medications Diphenhydramine HCl (Benadryl) 25 mg IVPUSH Q6H PRN PRN Reason: Itching Ephedrine Sulfate (Ephedrine Sulfate) 5 mg IVPUSH ASDIRECTED PRN PRN Reason: HYPOTENTSION Fentanyl (Sublimaze) 100 mcg EPIDUR Q3H PRN PRN Reason: Pain Last Admin: 07/25/19 12:07 Dose: 100 mcg Fentanyl/Bupivacaine HCl (Fentanyl/Bupivacaine/Ns 2 Mcg-0.125% 250 Ml) 250 ml EPIDUR CONTINUOUS PRN PRN Reason: Pain Last Admin: 07/25/19 12:07 Dose: 250 ml Lactated Ringer's (Ringers, Lactated) 1,000 mls @ 100 mls/hr IV ASDIRECTED MEGAN Last Admin: 07/25/19 12:33 Dose: 100 mls/hr Oxytocin/Lactated Ringer's (Pitocin In Lr 20 Units/1,000 Ml) 20 unit in 1,000 mls @ 500 mls/hr IV .CONTINUOUS MEGAN Vancomycin HCl 1 gm/ Sodium (Chloride) 250 mls @ 167 mls/hr IV Q12H MEGAN Last Admin: 07/25/19 07:41 Dose: 167 mls/hr Oxytocin/Lactated Ringer's (Pitocin In Lr 10 Units/1,000 Ml) 10 unit in 1,000 mls @ 12 mls/hr IV TITRATE MEGAN; Protocol Last Titration: 07/25/19 10:26 Dose: 8 munits/min, 48 mls/hr Nalbuphine HCl (Nubain) 10 mg IVPUSH Q2H PRN PRN Reason: Pain Ondansetron HCl (Zofran) 4 mg IVPUSH Q4H PRN PRN Reason: Nausea/Vomiting Sodium Chloride (Saline Flush) 10 ml FLUSH ASDIRECTED PRN PRN Reason: Keep Vein Open Discontinued Medications Misoprostol (Cytotec) Confirm Administered Dose 25 mcg .ROUTE .K-MED ONE Stop: 07/25/19 07:57 Last Admin: 07/25/19 08:03 Dose: Not Given - Exam General: Alert, Oriented HEENT: Pupils Equal, Mucous Membr. Moist/[place] Neck: Supple Lungs: Clear to Auscultation, Normal Respiratory Effort Cardiovascular: Regular Rate, Regular Rhythm GI/Abdominal Exam: Normal Bowel Sounds, Soft, Non-Tender Skin: Warm, Dry, Intact Neurological: No New Focal Deficit Psy/Mental Status: Alert, Normal Affect, Normal Mood - Problem List & Annotations (1) 40 weeks gestation of SNOMED Code(s): 53178322 Code(s): Z3A.40 - 40 WEEKS GESTATION OF Status: Acute Current Visit: Yes (2) GBS carrier SNOMED Code(s): 3540874648565 Code(s): Z22.330 - CARRIER OF GROUP B STREPTOCOCCUS Status: Acute Current Visit: Yes (3) Second degree laceration of perineum, delivered, current hospitalization SNOMED Code(s): 978243807, 792270040 Code(s): O70.1 - SECOND DEGREE PERINEAL LACERATION DURING DELIVERY Status: Acute Current Visit: Yes (4) Normal delivery at term SNOMED Code(s): 76837656 Code(s): O80 - ENCOUNTER FOR FULL-TERM UNCOMPLICATED DELIVERY Status: Acute Current Visit: Yes - Problem List Review Problem List Initiated/Reviewed/Updated: No - My Orders Last 24 Hours: My Active Orders 07/25/19 07:09 Patient Status [ADT] Routine Activity as Tolerated [RC] PFP Communication Order [RC] ASDIRECTED Non Stress Test [RC] PER UNIT ROUTINE Notify Provider [RC] PFP Notify Provider [RC] PRN Vital Signs [RC] PER UNIT ROUTINE BLOOD BANK HOLD SPECIMEN [BBK] Stat Nalbuphine [Nubain] 10 mg IVPUSH Q2H PRN Ondansetron [Zofran] 4 mg IVPUSH Q4H PRN Sodium Chloride 0.9% [Saline Flush] 10 ml FLUSH ASDIRECTED PRN Electronic Heart Tones Ext w TOCO [WOMSER] Routine Electronic Heart Tones Internal [WOMSER] Per Unit Routine Peripheral IV Insertion Adult [OM.PC] Routine Resuscitation Status Routine 07/25/19 07:10 Heart Tones [RC] ASDIRECTED Peripheral IV Care [RC] . DIRECTED 07/25/19 07:15 Lactated Ringers [Ringers, Lactated] 1,000 ml IV ASDIRECTED Oxytocin/Lactated Ringers [Pitocin in LR 20 Units/1,000 ML] 20 unit in 1,000 ml IV .CONTINUOUS 07/25/19 07:28 RAPID PLASMA REAGIN,RPR [CHEM] Routine 07/25/19 08:00 Vancomycin [Vancocin] 1 gm Sodium Chloride 0.9% [Normal Saline (AdvBag)] 250 ml IV Q12H 07/25/19 08:15 Oxytocin/Lactated Ringers [Pitocin in LR 10 Units/1,000 ML] 10 unit in 1,000 ml IV TITRATE 07/25/19 Breakfast Regular Diet [DIET] - Plan Plan:: Plan induction of labor and delivery. HPI Initial Comments: [facility] LIVE L/D Delivery Note Patient Name: JEANNINE MALIN Date of : 88 Patient Status: Inpatient Attending Provider: Peng Guerrier Date: 07/25/19 14:55 Initialization Date: 07/25/19 14:55 L & D Note - General Info Date of Service: 07/25/19 Mother's Due Date: 07/23/19 - Delivery Note Labor: Augmented by ARM, Augmented by Oxytocin Delivery Outcome: Livebirth (Delivery at 1332 on Thursday07/25/19 3870 grams 8 lbs. 9 oz. Apgars 9/9 at one and 5 minutes respectively. AIXA) Presentation: Right Occiput Anterior (AIXA) Nuchal Cord: None Prep: Povidone-Iodine (Betadine Anesthesia Type: Epidural Amniotic Fluid Description: Clear Episiotomy Type: None Laceration: 2nd Degree (Sutured with 3-0 Monocryl times one) Suture type: Other Suture size: 3-0 (Vicryl) Placenta: Intact, Spontaneous (1341 intact accessory lobe entire placenta intact Thursday07/25/19) Cord: 3 Vessels Estimated Blood Loss: 250 Resuscitation Needed: No : Suctioned, Bulb Syringe, Stimulated, Warmed, Dane Used, Warmer Used Provider: Peng Guerrier Score 1 min: 9 Score 5 min: 9 - General Info Date of Service: 07/25/19 Functional Status: Reports: Pain Controlled - Review of Systems General: Reports: No Symptoms HEENT: Reports: No Symptoms Pulmonary: Reports: No Symptoms Cardiovascular: Reports: No Symptoms Gastrointestinal: Reports: No Symptoms Genitourinary: Reports: No Symptoms Musculoskeletal: Reports: No Symptoms Skin: Reports: No Symptoms Neurological: Reports: No Symptoms Psychiatric: Reports: No Symptoms - Patient Data Vitals - Most Recent: Last Vital Signs Temp 98.2 F 07/25/19 07:09 Pulse 82 07/25/19 07:09 Resp 14 07/25/19 07:09 BP 115/83 07/25/19 07:09 Pulse Ox 100 07/25/19 07:09 Weight - Most Recent: 192 lb 3.2 oz Lab Results Last 24 Hours: Laboratory Results - last 24 hr 07/25/19 Range/Units 07:28 WBC 9.18 (3.98-10.04) K/mm3 RBC 4.94 (3.98-5.22) M/mm3 Hgb 14.0 (11.2-15.7) gm/dl Hct 41.9 (34.1-44.9) % MCV 84.8 (79.4-94.8) fl MCH 28.3 (25.6-32.2) pg MCHC 33.4 (32.2-35.5) g/dl RDW Std Deviation 42.1 (36.4-46.3) fL Plt Count 158 L (182-369) K/mm3 MPV 11.7 (9.4-12.3) fl Neut % (Auto) 72.5 H (34.0-71.1) % Lymph % (Auto) 17.1 L (19.3-51.7) % [place] % (Auto) 8.6 (4.7-12.5) % Eos % (Auto) 0.9 (0.7-5.8) Baso % (Auto) 0.1 (0.1-1.2) % Neut # (Auto) 6.66 H (1.56-6.13) K/mm3 Lymph # (Auto) 1.57 (1.18-3.74) K/mm3 [place] # (Auto) 0.79 H (0.24-0.36) K/mm3 Eos # (Auto) 0.08 (0.04-0.36) K/mm3 Baso # (Auto) 0.01 (0.01-0.08) K/mm3 Med Orders - Current: Current Medications Diphenhydramine HCl (Benadryl) 25 mg IVPUSH Q6H PRN PRN Reason: Itching Ephedrine Sulfate (Ephedrine Sulfate) 5 mg IVPUSH ASDIRECTED PRN PRN Reason: HYPOTENTSION Fentanyl (Sublimaze) 100 mcg EPIDUR Q3H PRN PRN Reason: Pain Last Admin: 07/25/19 12:07 Dose: 100 mcg Fentanyl/Bupivacaine HCl (Fentanyl/Bupivacaine/Ns 2 Mcg-0.125% 250 Ml) 250 ml EPIDUR CONTINUOUS PRN PRN Reason: Pain Last Admin: 07/25/19 12:07 Dose: 250 ml Lactated Ringer's (Ringers, Lactated) 1,000 mls @ 100 mls/hr IV ASDIRECTED MEGAN Last Admin: 07/25/19 12:33 Dose: 100 mls/hr Oxytocin/Lactated Ringer's (Pitocin In Lr 20 Units/1,000 Ml) 20 unit in 1,000 mls @ 500 mls/hr IV .CONTINUOUS MEGAN Vancomycin HCl 1 gm/ Sodium (Chloride) 250 mls @ 167 mls/hr IV Q12H MEGAN Last Admin: 07/25/19 07:41 Dose: 167 mls/hr Oxytocin/Lactated Ringer's (Pitocin In Lr 10 Units/1,000 Ml) 10 unit in 1,000 mls @ 12 mls/hr IV TITRATE MEGAN; Protocol Last Titration: 07/25/19 10:26 Dose: 8 munits/min, 48 mls/hr Nalbuphine HCl (Nubain) 10 mg IVPUSH Q2H PRN PRN Reason: Pain Ondansetron HCl (Zofran) 4 mg IVPUSH Q4H PRN PRN Reason: Nausea/Vomiting Sodium Chloride (Saline Flush) 10 ml FLUSH ASDIRECTED PRN PRN Reason: Keep Vein Open Discontinued Medications Misoprostol (Cytotec) Confirm Administered Dose 25 mcg .ROUTE .STK-MED ONE Stop: 07/25/19 07:57 Last Admin: 07/25/19 08:03 Dose: Not Given - Exam General: Alert, Oriented HEENT: Pupils Equal, Mucous Membr. Moist/[place] Neck: Supple Lungs: Clear to Auscultation, Normal Respiratory Effort Cardiovascular: Regular Rate, Regular Rhythm GI/Abdominal Exam: Normal Bowel Sounds, Soft, Non-Tender Skin: Warm, Dry, Intact Neurological: No New Focal Deficit Psy/Mental Status: Alert, Normal Affect, Normal Mood - Problem List & Annotations (1) 40 weeks gestation of SNOMED Code(s): 14289790 Code(s): Z3A.40 - 40 WEEKS GESTATION OF Status: Acute Current Visit: Yes (2) GBS carrier SNOMED Code(s): 2694236614040 Code(s): Z22.330 - CARRIER OF GROUP B STREPTOCOCCUS Status: Acute Current Visit: Yes (3) Second degree laceration of perineum, delivered, current hospitalization SNOMED Code(s): 183862864, 902370074 Code(s): O70.1 - SECOND DEGREE PERINEAL LACERATION DURING DELIVERY Status: Acute Current Visit: Yes (4) Normal delivery at term SNOMED Code(s): 69593570 Code(s): O80 - ENCOUNTER FOR FULL-TERM UNCOMPLICATED DELIVERY Status: Acute Current Visit: Yes - Problem List Review Problem List Initiated/Reviewed/Updated: No - My Orders Last 24 Hours: My Active Orders 07/25/19 07:09 Patient Status [ADT] Routine Activity as Tolerated [RC] PFP Communication Order [RC] ASDIRECTED Non Stress Test [RC] PER UNIT ROUTINE Notify Provider [RC] PFP Notify Provider [RC] PRN Vital Signs [RC] PER UNIT ROUTINE BLOOD BANK HOLD SPECIMEN [BBK] Stat Nalbuphine [Nubain] 10 mg IVPUSH Q2H PRN Ondansetron [Zofran] 4 mg IVPUSH Q4H PRN Sodium Chloride 0.9% [Saline Flush] 10 ml FLUSH ASDIRECTED PRN Electronic Heart Tones Ext w TOCO [WOMSER] Routine Electronic Heart Tones Internal [WOMSER] Per Unit Routine Peripheral IV Insertion Adult [OM.PC] Routine Resuscitation Status Routine 07/25/19 07:10 Heart Tones [RC] ASDIRECTED Peripheral IV Care [RC] . DIRECTED 07/25/19 07:15 Lactated Ringers [Ringers, Lactated] 1,000 ml IV ASDIRECTED Oxytocin/Lactated Ringers [Pitocin in LR 20 Units/1,000 ML] 20 unit in 1,000 ml IV .CONTINUOUS 07/25/19 07:28 RAPID PLASMA REAGIN,RPR [CHEM] Routine 07/25/19 08:00 Vancomycin [Vancocin] 1 gm Sodium Chloride 0.9% [Normal Saline (AdvBag)] 250 ml IV Q12H 07/25/19 08:15 Oxytocin/Lactated Ringers [Pitocin in LR 10 Units/1,000 ML] 10 unit in 1,000 ml IV TITRATE 07/25/19 Breakfast Regular Diet [DIET] - Plan Plan:: Plan induction of labor and delivery. Brief History: [facility] LIVE . L/D Delivery Note. Patient Name: JEANNINE MALIN [facility] Record Number: [id number]. Date of : Patient Status: Inpatient. Attending Provider: Peng Guerrier Number: [id number]. Date: 07/25/19 14:55Initialization Date: 07/25/19 14:55. L & D Note. - General Info. Date of Service: 07/25/19. Mother's Due Date: 07/23/19. - Delivery Note. Labor: Augmented by ARM, Augmented by Oxytocin. Delivery Outcome: Livebirth (Delivery at 1332 on Thursday07/25/19 3870 grams 8 lbs. 9 oz. Apgars 9/9 at one and 5 minutes respectively. AIXA). Presentation: Right Occiput Anterior (AIXA). Nuchal Cord: None. Prep: Povidone- Iodine (Betadine. Anesthesia Type: Epidural. Amniotic Fluid Description: Clear. Episiotomy Type: None. Laceration: 2nd Degree (Sutured with 3-0 Monocryl times one). Suture type: Other. Suture size: 3-0 (Vicryl). Placenta : Intact, Spontaneous (1341 intact accessory lobe entire placenta intact Thursday07/25/19). Cord: 3 Vessels. Estimated Blood Loss: 250. Resuscitation Needed: No. Marshall: Suctioned, Bulb Syringe, Stimulated, Warmed, Dane Used, Warmer Used. Provider: Peng Guerrier. Score 1 min: 9. Score 5 min: 9. - General Info. Date of Service: 07/25/19. Functional Status : Reports: Pain Controlled. - Review of Systems. General: Reports: No Symptoms. HEENT: Reports: No Symptoms. Pulmonary: Reports: No Symptoms. Cardiovascular: Reports: No Symptoms. Gastrointestinal: Reports: No Symptoms. Genitourinary: Reports: No Symptoms. Musculoskeletal: Reports: No Symptoms. Skin: Reports: No Symptoms. Neurological: Reports: No Symptoms. Psychiatric: Reports: No Symptoms. - Patient Data. Vitals - Most Recent: Last Vital Signs. Temp 98.2 F 07/25/19 07:09. Pulse 82 07/25/19 07:09. Resp 14 07:09. BP 115/83 07/25/19 07:09. Pulse Ox 100 07/25/19 07:09. Weight - Most Recent: 192 lb 3.2 oz. Lab Results Last 24 Hours: Laboratory Results - last 24 hr. 07/25/19Range/Units. 07:28. WBC 9.18 (3.98-10.04) K/mm3. RBC 4.94 (3.98-5.22) M/mm3. Hgb 14.0 (11.2-15.7) gm/dl. Hct 41.9 (34.1-44.9) % . MCV 84.8 (79.4-94.8) fl. MCH 28.3 (25.6-32.2) pg. MCHC 33.4 (32.2-35.5) g/dl. RDW Std Deviation 42.1 (36.4-46.3) fL. Plt Count 158 L (182-369) K/ mm3. MPV 11.7 (9.4-12.3) fl. Neut % (Auto) 72.5 H (34.0-71.1) %. Lymph % ( Auto) 17.1 L (19.3-51.7) %. [place] % (Auto) 8.6 (4.7-12.5) %. Eos % (Auto) 0.9 (0.7-5.8). Baso % (Auto) 0.1 (0.1-1.2) %. Neut # (Auto) 6.66 H (1.56-6.13 ) K/mm3. Lymph # (Auto) 1.57 (1.18-3.74) K/mm3. [place] # (Auto) 0.79 H (0.24- 0.36) K/mm3. Eos # (Auto) 0.08 (0.04-0.36) K/mm3. Baso # (Auto) 0.01 (0.01- 0.08) K/mm3. Med Orders - Current: Current Medications. Diphenhydramine HCl (Benadryl) 25 mg IVPUSH Q6H PRN. PRN Reason: Itching. Ephedrine Sulfate ( Ephedrine Sulfate) 5 mg IVPUSH ASDIRECTED PRN. PRN Reason: HYPOTENTSION. Fentanyl (Sublimaze) 100 mcg EPIDUR Q3H PRN. PRN Reason: Pain. Last Admin: 12:07 Dose: 100 mcg. Fentanyl/Bupivacaine HCl (Fentanyl/Bupivacaine/Ns 2 Mcg-0.125% 250 Ml) 250 ml EPIDUR CONTINUOUS PRN. PRN Reason: Pain. Last Admin: 07/25/19 12:07 Dose: 250 ml. Lactated Ringer's (Ringers, Lactated) 1, 000 mls @ 100 mls/hr IV ASDIRECTED MEGAN. Last Admin: 07/25/19 12:33 Dose: 100 mls/hr. Oxytocin/Lactated Ringer's (Pitocin In Lr 20 Units/1,000 Ml) 20 unit in 1,000 mls @ 500 mls/hr IV .CONTINUOUS MEGAN. Vancomycin HCl 1 gm/ Sodium ( Chloride) 250 mls @ 167 mls/hr IV Q12H MEGAN. Last Admin: 07/25/19 07:41 Dose: 167 mls/hr. Oxytocin/Lactated Ringer's (Pitocin In Lr 10 Units/1,000 Ml) 10 unit in 1,000 mls @ 12 mls/hr IV TITRATE MEGAN; Protocol. Last Titration: 10:26 Dose: 8 munits/min, 48 mls/hr. Nalbuphine HCl (Nubain) 10 mg IVPUSH Q2H PRN. PRN Reason: Pain. Ondansetron HCl (Zofran) 4 mg IVPUSH Q4H PRN. PRN Reason: Nausea/Vomiting. Sodium Chloride (Saline Flush) 10 ml FLUSH ASDIRECTED PRN. PRN Reason: Keep Vein Open. Discontinued Medications. Misoprostol (Cytotec) Confirm Administered Dose 25 mcg .ROUTE .STK-MED ONE. Stop: 07/25/19 07:57. Last Admin: 07/25/19 08:03 Dose: Not Given. - Exam. General: Alert, Oriented. HEENT: Pupils Equal, Mucous Membr. Moist/[place]. Neck : Supple. Lungs: Clear to Auscultation, Normal Respiratory Effort. Cardiovascular: Regular Rate, Regular Rhythm. GI/Abdominal Exam: Normal Bowel Sounds, Soft, Non-Tender. Skin: Warm, Dry, Intact. Neurological: No New Focal Deficit. Psy/Mental Status: Alert, Normal Affect, Normal Mood. - Problem List & Annotations. (1) 40 weeks gestation of . SNOMED Code(s): 78794877. Code(s): Z3A.40 - 40 WEEKS GESTATION OF Status: Acute Current Visit: Yes. (2) GBS carrier. SNOMED Code(s): 6881777075846. Code(s): Z22.330 - CARRIER OF GROUP B STREPTOCOCCUS Status: Acute Current Visit: Yes. (3) Second degree laceration of perineum, delivered, current hospitalization. SNOMED Code(s): 629885088, 572539360. Code(s): O70.1 - SECOND DEGREE PERINEAL LACERATION DURING DELIVERY Status: Acute Current Visit: Yes. (4) Normal delivery at term. SNOMED Code(s): 70360198. Code(s): O80 - ENCOUNTER FOR FULL- TERM UNCOMPLICATED DELIVERY Status: Acute Current Visit: Yes. - Problem List Review. Problem List Initiated/Reviewed/Updated: No. - My Orders. Last 24 Hours: My Active Orders. 07/25/19 07:09. Patient Status [ADT] Routine. Activity as Tolerated [RC] PFP. Communication Order [RC] ASDIRECTED. Non Stress Test [RC] PER UNIT ROUTINE. Notify Provider [RC] PFP. Notify Provider [RC] PRN. Vital Signs [RC] PER UNIT ROUTINE. BLOOD BANK HOLD SPECIMEN [BBK] Stat. Nalbuphine [Nubain] 10 mg IVPUSH Q2H PRN. Ondansetron [ Zofran] 4 mg IVPUSH Q4H PRN. Sodium Chloride 0.9% [Saline Flush] 10 ml FLUSH ASDIRECTED PRN. Electronic Heart Tones Ext w TOCO [WOMSER] Routine. Electronic Heart Tones Internal [WOMSER] Per Unit Routine. Peripheral IV Insertion Adult [OM.PC] Routine. Resuscitation Status Routine. 07/25/19 07:10. Heart Tones [RC] ASDIRECTED. Peripheral IV Care [RC] . DIRECTED. 07/25/19 07:15. Lactated Ringers [Ringers, Lactated] 1,000 ml IV ASDIRECTED. Oxytocin/Lactated Ringers [Pitocin in LR 20 Units/1,000 ML] 20 unit in 1,000 ml IV .CONTINUOUS. 07/25/19 07:28. RAPID PLASMA REAGIN,RPR [CHEM ] Routine. 07/25/19 08:00. Vancomycin [Vancocin] 1 gm Sodium Chloride 0.9% [ Normal Saline (AdvBag)] 250 ml IV Q12H. 07/25/19 08:15. Oxytocin/Lactated Ringers [Pitocin in LR 10 Units/1,000 ML] 10 unit in 1,000 ml IV TITRATE. 07/25 Breakfast. Regular Diet [DIET]. - Plan. Plan:: Plan induction of labor and delivery. Diagnosis: Stroke: No - Discharge Data Discharge Date: 07/26/19 Discharge Disposition: Home, Self-Care 01 Condition: Good - Referral to Home Health Primary Care Physician: Peng Guerrier MD - Discharge Diagnosis/Problem(s) (1) 40 weeks gestation of SNOMED Code(s): 94937320 ICD Code: Z3A.40 - 40 WEEKS GESTATION OF Status: Acute Current Visit: Yes (2) GBS carrier SNOMED Code(s): 7813441147940 ICD Code: Z22.330 - CARRIER OF GROUP B STREPTOCOCCUS Status: Acute Current Visit: Yes (3) Second degree laceration of perineum, delivered, current hospitalization SNOMED Code(s): 940601083, 509167600 ICD Code: O70.1 - SECOND DEGREE PERINEAL LACERATION DURING DELIVERY Status : Acute Current Visit: Yes (4) Normal delivery at term SNOMED Code(s): 24735835 ICD Code: O80 - ENCOUNTER FOR FULL-TERM UNCOMPLICATED DELIVERY Status: Acute Current Visit: Yes - Patient Summary/Data Complications: None Consults: None Hospital Course: Uneventful - Patient Instructions Diet: Usual Diet as Tolerated Driving: Do Not Drive (4 days) Showering/Bathing: May Shower Notify Provider of: Fever, Increased Pain, Swelling and Redness, Drainage - Discharge Plan *PRESCRIPTION DRUG MONITORING PROGRAM REVIEWED*: Not Applicable *COPY OF PRESCRIPTION DRUG MONITORING REPORT IN PATIENT ASIM: Not Applicable Home Medications: Home Meds Venlafaxine HCl [Venlafaxine ER] 37.5 mg PO DAILY 09/18/17 [History] Vit with Ca/FA/Iron [ Plus Iron] 1 each PO DAILY tablet [Rx] Acetaminophen [Tylenol] 650 mg PO Q6H PRN tablet 07/26/19 [Rx] Benzocaine/Menthol [Dermoplast Pain Relief Atco] 1 spray TOP ASDIRECTED PRN canister 07/26/19 [Rx] Docusate Sodium [Colace] 100 mg PO BID PRN cap 07/26/19 [Rx] Ibuprofen [Motrin] 600 mg PO Q6H PRN tablet 07/26/19 [Rx] Simethicone 80 mg PO Q4H PRN tab.chew 07/26/19 [Rx] Chad Vang [Tucks] 1 pad TOP ASDIRECTED PRN pad 07/26/19 [Rx] Referrals: Peng Guerrier MD [Primary Care Provider] - (has follow up appointment already) - Discharge Summary/Plan Comment DC Time >30 min.: No - Patient Data Vitals - Most Recent: Last Vital Signs Temp 97.5 F 07/26/19 05:40 Pulse 72 07/26/19 05:37 Resp 14 07/26/19 05:37 BP 111/71 07/26/19 05:37 Pulse Ox 97 07/26/19 05:37 Weight - Most Recent: 192 lb 3.2 oz I&O - Last 24 hours: Intake & Output 07/25/19 07/26/19 07/26/19 22:59 06:59 14:59 Output Total 300 Balance -300 Lab Results - Last 24 hrs: Laboratory Results - last 24 hr 07/25/19 07/26/19 Range/Units 07:28 05:55 WBC 10.00 (3.98-10.04) K/mm3 RBC 4.74 (3.98-5.22) M/mm3 Hgb 13.2 (11.2-15.7) gm/dl Hct 40.5 (34.1-44.9) % MCV 85.4 (79.4-94.8) fl MCH 27.8 (25.6-32.2) pg MCHC 32.6 (32.2-35.5) g/dl RDW Std Deviation 42.1 (36.4-46.3) fL Plt Count 142 L (182-369) K/mm3 MPV 11.9 (9.4-12.3) fl Neut % (Auto) 66.6 (34.0-71.1) % Lymph % (Auto) 23.0 (19.3-51.7) % [place] % (Auto) 8.6 (4.7-12.5) % Eos % (Auto) 1.1 (0.7-5.8) Baso % (Auto) 0.1 (0.1-1.2) % Neut # (Auto) 6.66 H (1.56-6.13) K/mm3 Lymph # (Auto) 2.30 (1.18-3.74) K/mm3 [place] # (Auto) 0.86 H (0.24-0.36) K/mm3 Eos # (Auto) 0.11 (0.04-0.36) K/mm3 Baso # (Auto) 0.01 (0.01-0.08) K/mm3 Manual Slide Review Not Reportable RPR Non-reactive (NONREACTIVE) Med Orders - Current: Current Medications Acetaminophen (Tylenol) 650 mg PO Q4H PRN PRN Reason: mild pain or fever Benzocaine/Menthol (Dermoplast Pain Relief Atco) 0 gm TOP ASDIRECTED PRN PRN Reason: Perineal Comfort Measure Last Admin: 07/25/19 16:29 Dose: 1 can Docusate Sodium (Colace) 100 mg PO BID PRN PRN Reason: Constipation Ibuprofen (Motrin) 600 mg PO Q4H PRN PRN Reason: Mild pain or fever Last Admin: 07/26/19 09:45 Dose: 600 mg Simethicone (Simethicone) 80 mg PO Q4H PRN PRN Reason: Gas Witch [place] (Tucks) 1 pad TOP ASDIRECTED PRN PRN Reason: Perineal Comfort Measure Last Admin: 07/25/19 16:29 Dose: 1 tub Discontinued Medications Diphenhydramine HCl (Benadryl) 25 mg IVPUSH Q6H PRN PRN Reason: Itching Ephedrine Sulfate (Ephedrine Sulfate) 5 mg IVPUSH ASDIRECTED PRN PRN Reason: HYPOTENTSION Fentanyl (Sublimaze) 100 mcg EPIDUR Q3H PRN PRN Reason: Pain Last Admin: 07/25/19 12:07 Dose: 100 mcg Fentanyl/Bupivacaine HCl (Fentanyl/Bupivacaine/Ns 2 Mcg-0.125% 250 Ml) 250 ml EPIDUR CONTINUOUS PRN PRN Reason: Pain Last Admin: 07/25/19 12:07 Dose: 250 ml Lactated Ringer's (Ringers, Lactated) 1,000 mls @ 100 mls/hr IV ASDIRECTED MEGAN Last Admin: 07/25/19 12:33 Dose: 100 mls/hr Oxytocin/Lactated Ringer's (Pitocin In Lr 20 Units/1,000 Ml) 20 unit in 1,000 mls @ 500 mls/hr IV .CONTINUOUS MEGAN Vancomycin HCl 1 gm/ Sodium (Chloride) 250 mls @ 167 mls/hr IV Q12H MEGAN Last Admin: 07/25/19 07:41 Dose: 167 mls/hr Oxytocin/Lactated Ringer's (Pitocin In Lr 10 Units/1,000 Ml) 10 unit in 1,000 mls @ 12 mls/hr IV TITRATE MEGAN; Protocol Last Titration: 07/25/19 10:26 Dose: 8 munits/min, 48 mls/hr Misoprostol (Cytotec) Confirm Administered Dose 25 mcg .ROUTE .[facility] Stop: 07/25/19 07:57 Last Admin: 07/25/19 08:03 Dose: Not Given Nalbuphine HCl (Nubain) 10 mg IVPUSH Q2H PRN PRN Reason: Pain Ondansetron HCl (Zofran) 4 mg IVPUSH Q4H PRN PRN Reason: Nausea/Vomiting Sodium Chloride (Saline Flush) 10 ml FLUSH ASDIRECTED PRN PRN Reason: Keep Vein Open
--- NOTE | 2019-07-26 11:32 | PCM48HPAN ---
Post Anesthesia Note - EVALUATION WITHIN 48HRS OF ANESTHETIC Vital Signs in Normal Range: Yes Patient Participated in Evaluation: Yes Respiratory Function Stable: Yes Airway Patent: Yes Cardiovascular Function Stable: Yes Hydration Status Stable: Yes Pain Control Satisfactory: Yes Nausea and Vomiting Control Satisfactory: Yes Mental Status Recovered: Yes Vital Signs: Last Vital Signs Temp 36.4 C 07/26/19 09:38 Pulse 80 07/26/19 09:38 Resp 13 07/26/19 09:38 BP 123/80 07/26/19 09:38 Pulse Ox 97 07/26/19 09:38
[2019-07-27] MEDS: Ibuprofen 600 MG Tab PO PRN (06:47)
== END 2019-07-27 10:30 | disposition home or self-care (01) | DRG 560 ==
LOC: JD.OB 07:01 → OBSVTOIN 14:32 → JD.OB 14:33
PROVIDERS: ADMIT Obstetrics & Gynecology; ATTEND Obstetrics & Gynecology
PROC: 10E0XZZ Delivery of Products of Conception, External Approach (ICD-10-PCS; principal; 2019-07-25)
PROC: 10907ZC Drainage of Amniotic Fluid, Therapeutic from Products of Conception, Via Natural or Artificial Opening (ICD-10-PCS; 2019-07-25)
PROC: 3E033VJ Introduction of Other Hormone into Peripheral Vein, Percutaneous Approach (ICD-10-PCS; 2019-07-25)
PROC: 0KQM0ZZ Repair Perineum Muscle, Open Approach (ICD-10-PCS; 2019-07-25)
DX: O48.0 Post-term pregnancy (principal); Z3A.40 40 weeks gestation of pregnancy; O70.1 Second degree perineal laceration during delivery; O99.824 Streptococcus B carrier state complicating childbirth; Z79.899 Other long term (current) drug therapy; Z88.0 Allergy status to penicillin; O99.284 Endocrine, nutritional and metabolic diseases complicating childbirth; E03.9 Hypothyroidism, unspecified; Z37.0 Single live birth
CPT/HCPCS: 01967; 36415; 51702; 59025; 59409; 85025; 86592; A9270-GY; J2590; J3010; J3370; J3490; J7050; J7120

== ENCOUNTER 2021-10-29 08:16 | Day surgery (SDC) | payer BC ==
[~2021-10-29 08:16] MED LIST changes: -Bupivacaine 0.25% 10 ML SDV ONE; +Doxycycline 100 MG Cap PO ONE; +Lactated Ringers 1,000 ML IV SCH; +Lidocaine 1%/Sod Bicarbonate in NS 8.4% 1 ML Syringe IDERM PRN; +Sodium Chloride 0.9% 10 ML Syringe FLUSH PRN; +Sodium Chloride 0.9% 10 ML Syringe FLUSH SCH
[2021-10-29] MEDS ORDERED: Propofol 200 MG/20 ML SDV ONE ×2 (08:52→09:24)
[2021-10-29] MEDS ORDERED: fentaNYL 250 MCG/5 ML SDV ONE (08:54)
[2021-10-29] MEDS ORDERED: Ondansetron 4 MG/2 ML SDV ONE ×2 (08:54→09:33)
[2021-10-29] MEDS ORDERED: Midazolam 1 MG/ML 2 ML SDV ONE ×2 (08:55→09:27)
[2021-10-29] MEDS ORDERED: Ketorolac 30 MG/ML SDV ONE (09:44)
[2021-10-29] MEDS ORDERED: oxyCODONE 5 MG Tab PO ONE (10:50)
== END 2021-10-29 11:44 | disposition home or self-care (01) ==
LOC: JD.SDS 08:16
PROVIDERS: ATTEND Obstetrics & Gynecology
DX: O02.1 Missed abortion (principal); F41.9 Anxiety disorder, unspecified; F32.A Depression, unspecified; Z88.0 Allergy status to penicillin; Z79.899 Other long term (current) drug therapy; Z98.890 Other specified postprocedural states; K21.9 Gastro-esophageal reflux disease without esophagitis; E03.9 Hypothyroidism, unspecified
CPT/HCPCS: 59820; A9270; J1885; J2250; J2405; J2704; J3010; J7120; 01965

== ENCOUNTER 2022-10-27 04:08 | Inpatient (IN) | payer BC ==
[2022-10-27] MEDS ORDERED: Ondansetron 4 MG/2 ML SDV IVPUSH PRN (19:14)
[2022-10-27] MEDS ORDERED: Nalbuphine 10 MG/0.5 ML Syringe IVPUSH PRN (19:14)
[2022-10-27] MEDS ORDERED: Famotidine 20 MG/2 ML SDV IVPUSH PRN (19:14)
[2022-10-27] MEDS ORDERED: Misoprostol 200 MCG Tab PO PRN (19:14)
[2022-10-27] MEDS ORDERED: Carboprost Tromethamine 250 MCG/1 ML Amp IM ONE (19:14)
[2022-10-27] MEDS ORDERED: Calcium Carbonate 500 MG Tab.Chew PO PRN (19:14)
[2022-10-27] MEDS ORDERED: Lidocaine 1% 50 ML MDV INJECT ONE (19:14)
[2022-10-27] MEDS ORDERED: Methylergonovine 0.2 MG/1 ML Amp IM PRN (19:14)
[2022-10-27] MEDS ORDERED: Tranexamic Acid 1,000 MG in Sodium Chloride 0.9% 100 ML IV PRN (19:14)
[2022-10-27] MEDS ORDERED: Oxytocin 10 Units/1 ML SDV IM ONE (19:14)
[2022-10-27] MEDS ORDERED: Oxytocin/Lactated Ringers 10 UNIT/1,000 ML BAG IV SCH ×2 (19:15)
[2022-10-27] MEDS ORDERED: Lactated Ringers 1,000 ML IV SCH (19:15)
[2022-10-27] MEDS ORDERED: Oxytocin/Lactated Ringers 10 UNIT/1,000 ML BAG IV ONE (20:28)
[2022-10-27] MEDS: Clindamycin Phosphate in D5W 900 MG in Premix Bag 1 BAG IV SCH ×2 (20:46)
[2022-10-27] MEDS ORDERED: Dextrose 5%-Lactated Ringers 1,000 ML IV SCH (22:30)
[2022-10-28] MEDS ORDERED: Ropivacaine 0.2% PF 2 MG/ML 20 ML SDV ONE (02:00)
[2022-10-28] MEDS ORDERED: Bupivacaine/fentaNYL/NS 100 ML Bag EPIDUR PRN (02:12)
[2022-10-28] MEDS ORDERED: fentaNYL 100 MCG/2 ML SDV EPIDUR PRN (02:12)
[2022-10-28] MEDS ORDERED: ePHEDrine 50 MG/ML SDV IVPUSH PRN (02:12)
[2022-10-28] MEDS ORDERED: diphenhydrAMINE 50 MG/ML SDV IVPUSH PRN (02:12)
[2022-10-28] MEDS ORDERED: Docusate Sodium 100 MG Cap PO PRN (04:49)
[2022-10-28] MEDS ORDERED: Benzocaine/Menthol 20%-0.5% Spray 78 GM Cannister TOP PRN (04:49)
[2022-10-28] MEDS ORDERED: Witch Hazel Medicated Pads 40/Jar TOP PRN (04:49)
[2022-10-28] MEDS: Acetaminophen 325 MG Tab PO PRN ×2 (07:49→14:04)
[2022-10-28] MEDS: Ibuprofen 600 MG Tab PO PRN ×3 (07:50→20:36)
[2022-10-28] MEDS: Prenatal Multivitamin with Calcium/Folic Acid/Iron Tab PO SCH (08:51)
[2022-10-28] MEDS: Clindamycin Phosphate in D5W 900 MG in Premix Bag 1 BAG IV SCH ×2 (23:46)
[2022-10-29] MEDS: Ibuprofen 600 MG Tab PO PRN ×2 (03:07→10:07)
[2022-10-29] MEDS: Prenatal Multivitamin with Calcium/Folic Acid/Iron Tab PO SCH (10:07)
[2022-10-29] MEDS: Acetaminophen 325 MG Tab PO PRN (10:07)
== END 2022-10-29 13:45 | disposition home or self-care (01) | DRG 560 ==
LOC: JD.OB 04:08 → OBSVTOIN 10-28 04:08 → JD.OB 10-28 04:09
PROVIDERS: ADMIT Obstetrics & Gynecology; ATTEND Obstetrics & Gynecology
PROC: 10E0XZZ Delivery of Products of Conception, External Approach (ICD-10-PCS; principal; 2022-10-28)
PROC: 3E033VJ Introduction of Other Hormone into Peripheral Vein, Percutaneous Approach (ICD-10-PCS; 2022-10-28)
PROC: 0KQM0ZZ Repair Perineum Muscle, Open Approach (ICD-10-PCS; 2022-10-28)
PROC: 3E0R3BZ Introduction of Anesthetic Agent into Spinal Canal, Percutaneous Approach (ICD-10-PCS; 2022-10-28)
DX: O99.62 Diseases of the digestive system complicating childbirth (principal); Z37.0 Single live birth; K21.9 Gastro-esophageal reflux disease without esophagitis; O99.344 Other mental disorders complicating childbirth; F41.9 Anxiety disorder, unspecified; F32.A Depression, unspecified; O99.284 Endocrine, nutritional and metabolic diseases complicating childbirth; E03.9 Hypothyroidism, unspecified; O24.420 Gestational diabetes mellitus in childbirth, diet controlled; O13.4 Gestational [pregnancy-induced] hypertension without significant proteinuria, complicating childbirth; O99.824 Streptococcus B carrier state complicating childbirth; O70.1 Second degree perineal laceration during delivery; Z3A.39 39 weeks gestation of pregnancy
CPT/HCPCS: 36415; 59025; 59409; 82947; 85025; 86592; 86850; 86900; 86901; A9270-GY; J2405; J2590; J2795; J3490; J7120; J7121

== ENCOUNTER 2024-09-02 07:12 | Day surgery (SDC) | payer BC ==
[~2024-09-02 07:12] MED LIST changes: +Clindamycin Phosphate in D5W 900 MG in Premix Bag 1 BAG IV ONE; -Doxycycline 100 MG Cap PO ONE; -Lactated Ringers 1,000 ML IV SCH; +Lidocaine 1% 5 ML VIAL ONE; -Lidocaine 1%/Sod Bicarbonate in NS 8.4% 1 ML Syringe IDERM PRN; +Midazolam 1 MG/ML 2 ML SDV ONE; +Ondansetron 4 MG/2 ML SDV ONE; +Propofol 200 MG/20 ML SDV ONE; +Rocuronium 50 MG/5 ML Vial ONE; +fentaNYL 250 MCG/5 ML SDV ONE
[2024-09-02 07:35] LABS: APPEARANCE,URINE CLEAR (Clear); BILIRUBIN,URINE NEGATIVE (Negative); COLOR,URINE YELLOW (Yellow); GLUCOSE,URINE NEGATIVE (Negative); KETONES,URINE 1+ (Negative); LEUKOCYTE ESTERASE,URINE NEGATIVE (Negative); NITRITE,URINE NEGATIVE (Negative); OCCULT BLOOD,URINE NEGATIVE (Negative); PH,URINE 5.5 (5.0-8.0); PROTEIN,URINE NEGATIVE (Negative); UROBILINOGEN,URINE 0.2 (0.2-1.0)
[2024-09-02] MEDS: Lactated Ringers 1,000 ML IV SCH (07:35)
[2024-09-02] MEDS: Gentamicin 360 MG in Sodium Chloride 0.9% 100 ML IV ONE (07:35)
[2024-09-02] MEDS ORDERED: Dexamethasone 4 MG/ML 5 ML MDV ONE (07:46)
[2024-09-02] MEDS ORDERED: diphenhydrAMINE 50 MG/ML SDV ONE (07:46)
[2024-09-02] MEDS ORDERED: dexmedeTOMIDine HCl 200 MCG/2 ML SDV ONE (07:47)
[2024-09-02] MEDS: Scopalamine 1mg/3day Transdermal Patch TOP ONE (07:55)
[2024-09-02] MEDS ORDERED: Metoclopramide 10 MG/2 ML SDV ONE (08:11)
[2024-09-02] MEDS ORDERED: Ondansetron 4 MG/2 ML SDV IVPUSH PRN (08:23)
[2024-09-02] MEDS ORDERED: fentaNYL 100 MCG/2 ML SDV IVPUSH PRN (08:23)
[2024-09-02] MEDS ORDERED: HYDROmorphone 0.5 MG/0.5 ML Syringe IVPUSH PRN (08:23)
[2024-09-02] MEDS ORDERED: droPERidol 5 MG/2 ML SDV IVPUSH PRN (08:23)
[2024-09-02] MEDS ORDERED: ePHEDrine 50 MG/ML SDV ONE (08:39)
[2024-09-02] MEDS ORDERED: Sugammadex Sodium 200 MG/2 ML VIAL IV ONE (08:45)
[2024-09-02] MEDS: Bupivacaine 0.25% 10 ML SDV ONE (08:55)
[2024-09-02] MEDS: EPINEPHrine 1 MG/ML SDV ONE (08:55)
[2024-09-02] MEDS ORDERED: Bupivacaine 0.25% 10 ML SDV ONE (08:58)
[2024-09-02] MEDS ORDERED: Lactated Ringers 1,000 ML ONE (09:00)
[2024-09-02] MEDS ORDERED: Ketorolac 30 MG/ML SDV ONE (09:30)
[2024-09-02] MEDS: Acetaminophen 325 MG Tab PO ONE (11:12)
[2024-09-02] MEDS: oxyCODONE 5 MG Tab PO PRN (11:13)
[2024-09-02] MEDS: oxyCODONE 5 MG Tab PO ONE (14:01)
== END 2024-09-02 14:00 | disposition home or self-care (01) ==
LOC: JD.SDS 07:12
PROVIDERS: ATTEND Obstetrics & Gynecology
DX: N81.10 Cystocele, unspecified (principal); N81.6 Rectocele; N39.3 Stress incontinence (female) (male); R14.3 Flatulence; E03.9 Hypothyroidism, unspecified; E66.3 Overweight; E11.9 Type 2 diabetes mellitus without complications; Z88.0 Allergy status to penicillin; Z79.899 Other long term (current) drug therapy; Z79.890 Hormone replacement therapy; Z68.29 Body mass index [BMI] 29.0-29.9, adult
CPT/HCPCS: 36415; 56810; 57288; 81003; 81025; 86850; 86900; 86901; A9270; J0171; J0665; J1100; J1200; J1580; J1885; J2250; J2405; J2704; J2765; J3010; J3490; J7120

== ENCOUNTER 2024-09-18 16:16 | Emergency (ER) | payer BC ==
[2024-09-18 17:37] LABS: BASOPHILS PERCENT AUTO 0.3 % (0.0-1.0); EOSINOPHILS ABSOLUTE AUTO 0.3 K/mm3 (0.0-0.4); EOSINOPHILS PERCENT AUTO 3.3 % (0.0-6.0); HEMATOCRIT 45.2 % (37.0-47.0); HEMOGLOBIN 14.9 gm/dl (12.0-16.0); IMMATURE GRAN ABSOLUTE AUTO 0.03 K/mm3 (0.00-0.05); IMMATURE GRAN PERCENT AUTO 0.3 % (0.0-0.4); LYMPHOCYTES ABSOLUTE AUTO 2.5 K/mm3 (1.0-4.8); LYMPHOCYTES PERCENT AUTO 26.5 % (24.0-44.0); MEAN CORPUSCULAR HEMOGLOBIN 28.4 pg (28.0-32.0); MEAN CORPUSCULAR VOLUME 86.3 fl (83.0-99.0); MEAN PLATELET VOLUME 10.9 fl (9.4-12.3); MONOCYTES ABSOLUTE AUTO 0.6 K/mm3 (0.0-0.8); MONOCYTES PERCENT AUTO 6.3 % (0.0-8.0); NEUTROPHILS ABSOLUTE AUTO 5.8 K/mm3 (1.8-7.7); NEUTROPHILS PERCENT AUTO 63.3 % (41.0-71.0); PLATELET COUNT,PLT 288 K/mm3 (150-400); RED BLOOD CELL COUNT 5.24 M/mm3 (4.10-5.30); WHITE BLOOD CELL COUNT,WBC 9.23 K/mm3 (3.9-11.3)
[2024-09-18 17:51] LABS: APPEARANCE,URINE CLEAR (Clear); BILIRUBIN,URINE NEGATIVE (Negative); COLOR,URINE YELLOW (Yellow); GLUCOSE,URINE NEGATIVE (Negative); KETONES,URINE NEGATIVE (Negative); LEUKOCYTE ESTERASE,URINE 1+ (Negative); NITRITE,URINE NEGATIVE (Negative); OCCULT BLOOD,URINE TRACE-INTACT (Negative); PROTEIN,URINE NEGATIVE (Negative); UROBILINOGEN,URINE 0.2 (0.2-1.0)
[2024-09-18 17:57] LABS: BACTERIA,URINE FEW /hpf (FEW); MUCUS,URINE FEW /hpf (FEW)
[2024-09-18 17:58] LABS: A/G RATIO 1.2 (1-2); ALBUMIN 4.1 g/dl (3.4-5.0); ANION GAP 14.8 (5-15); BILIRUBIN TOTAL 0.8 mg/dL (0.2-1.0); BUN/CREATININE RATIO 13.8 (14-18); C-REACTIVE PROTEIN 0.18 mg/dL (<0.30); CALCIUM 9.1 mg/dL (8.5-10.1); CREATININE 0.8 mg/dL (0.55-1.02); EST CRCL DRUG DOSING (CG) 96.36 mL/min; POTASSIUM,K 3.8 mEq/L (3.5-5.1); PROTEIN TOTAL,TP 7.4 g/dl (6.4-8.2)
[2024-09-18] MEDS ORDERED: Iopamidol 755 Mg/ML 100 ML Bottle IVPUSH ONE (18:23)
[2024-09-18] MEDS ORDERED: Sodium Chloride 0.9% 100 ML IV SCH (18:30)
[2024-09-18] MEDS: Sodium Chloride 0.9% 1,000 ML IV ONE (19:00)
[2024-09-18] MEDS: Sulfamethoxazole/Trimethoprim 800-160 MG Tab PO ONE (21:25)
== END 2024-09-18 21:28 | disposition home or self-care (01) ==
LOC: JD.ED 16:16
DX: N30.01 Acute cystitis with hematuria (principal); R07.89 Other chest pain; I10 Essential (primary) hypertension; E03.9 Hypothyroidism, unspecified; Z88.0 Allergy status to penicillin; Z79.899 Other long term (current) drug therapy; Z86.16 Personal history of COVID-19; Z90.49 Acquired absence of other specified parts of digestive tract
CPT/HCPCS: 36415; 71275; 71275-26; 74177; 74177-26; 80053; 81001; 81025; 85025; 85379; 86140; 87086; 87428-QW; 96360; 99285-25; A9270-GY; J7030